=== PATIENT | female | born 1990 | race Asian ===

== ENCOUNTER → 2016-04-26 | Outpatient (REF) | payer OTHER | END | disposition home or self-care (01) | LOC: M SFHCPLAZ 15:41 | PROVIDERS: ATTEND Nurse Practitioner Family | DX: R30.0 Dysuria (principal) ==

== ENCOUNTER 2016-05-15 16:12 | Emergency (ER) | payer OTHER ==
[2016-05-15 17:53] LABS: CONTROL LINE UCG INT CTR LINE PRESENT
[2016-05-15 18:33] LABS: MEAN CORPUSCULAR HEMOGLOBIN 29.8 pg (27.0-33.0); MEAN CORPUSCULAR VOLUME 87.7 fl (80.0-96.0); RED CELL DISTRIBUTION WIDTH 12.8 % (11.5-14.5); WHITE BLOOD COUNT 7.2 K/mm3 (4.0-10.0)
[2016-05-15 19:10] LABS: ANION GAP 7 MEQ/L (8-16); BLOOD UREA NITROGEN 9 MG/DL (7-18); CALCIUM LEVEL 8.6 MG/DL (8.5-10.1); CARBON DIOXIDE LEVEL 26 MEQ/L (21-32); CHLORIDE LEVEL 107 MEQ/L (98-107); CREATININE FOR GFR 0.65 MG/DL (0.55-1.02); GLOMERULAR FILTRATION RATE > 60.0 (>60); GLUCOSE, FASTING 82 MG/DL (70-105); HCG, SERUM QUANTITATIVE 11344 MIU/ML; SODIUM LEVEL 140 MEQ/L (136-145)
--- NOTE | 2016-05-15 20:13 | EDDOCDS ---
Physician Documentation [facility] Name: Lisa Hahn Age: 25 yrs Sex: Female : 1990 Arrival Date: 05/15/2016 Time: 16:12 Bed I6 / 28 Private MD: Orquidea Fonseca M. Disposition: 05/15/16 20:00 Patient has left against medical advice. Impression: Pelvic and perineal pain, related conditions, unspecified, first trimester - twins. - Patients states they are going to Home/Self Care. - Condition is Fair. - Discharge Instructions: First Trimester of , Pelvic Pain, Female. Medication Reconciliation, Local Pharmacy Hours form. Follow up: Orquidea Fonseca; When: Call to arrange an appointment; Reason: Recheck today's complaints, Continuance of care. Follow up: Christopher Rodríguez MD; When: Call to arrange an appointment; Reason: Recheck today's complaints, Continuance of care. - Problem is new. - Symptoms are unchanged. Historical: - Allergies: SULFA (SULFONAMIDES); - Home Meds: 1. none - PMHx: Asthma; - PSHx: Adenoidectomy; - Social history: No barriers to communication noted, The patient speaks fluent Hungarian, Speaks appropriately for age, Smoking status: Patient states former smoker of tobacco. - Family history: Not pertinent. - : The pt / caregiver states he / she is not on anticoagulants. Home medication list is obtained from the patient. - Exposure Risk Screening:: None identified. 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 0 in. (182.88 cm) (R); Pain 3/10; 20:12 BP 145 / 67; Pulse 96; Resp 18; Temp 99.7(O); Pulse Ox 98% ; Pain 0/10; slm 16:13 Body Mass Index 25.09 (83.91 kg, 182.88 cm) mt4 MDM: 17:27 If pre-RCE wait time >60 minutes, inform reg. staff to do full reg ordered. kr3 17:27 If pt is female > 10 yo, order UCG ordered. kr3 17:27 Urinalysis Ordered. EDMS 17:27 Urine Test-In Lab Ordered. EDMS 17:27 Urine Culture Ordered. EDMS 18:03 Urine Test-In Lab Reviewed. mo1 18:04 Urinalysis Reviewed. mo1 18:05 Urine Test-In Lab Reviewed. mo1 18:13 Rh Only Ordered. EDMS 18:13 Complete Blood Count Ordered. EDMS 18:13 Hcg, Serum Quantitative Ordered. EDMS 18:13 BMP Ordered. EDMS 18:15 US 1st trimester Ordered. EDMS 18:21 Financial registration complete. gb 18:22 [facility] Payment Agreement was scanned into [employer] and attached to record. gb 18:48 TRANSVAGINAL US Ordered. EDMS 18:48 US 1ST TRI EA ADDITIONAL GEST Ordered. EDMS 19:04 Complete Blood Count Reviewed. mo1 19:04 Rh Only Reviewed. mo1 19:05 DUPLEX SCAN LIMITED (DOPPLER) Ordered. EDMS 19:15 BMP Reviewed. mo1 19:15 Hcg, Serum Quantitative Reviewed. mo1 Signatures: Dispatcher [employer] EDMS Yun Anaya, Reg Reg gb Destinee Molina,RN RN angelita3 Bere Sullivan,RN RN Rosalinda Mora,RN RN Rashard Mcbride, LUCA PA mo1 Valeria Gardner,NICOLLE WEATHER OBSERVER idam The chart was reviewed and I authenticate all verbal orders and agree with the evaluation and treatment provided.Attachments: 18:22 [facility] Payment Agreement gb MTDD
--- NOTE | 2016-05-15 20:13 | EDDOCDS ---
Nurse's Notes [facility] Name: Lisa Hahn Age: 25 yrs Sex: Female : 1990 Arrival Date: 05/15/2016 Time: 16:12 Bed I6 / 28 Private MD: Orquidea Fonseca M. Diagnosis: Pelvic and perineal pain; related conditions, unspecified, first trimester-twins Presentation: 05/15 16:31 Presenting complaint: Patient states: Positive test 1 week ago. having jo3 intermittent pressure feeling in supra pubic area with intermittent, bilateral cramping sensation. Risk factors: the patient reports no vaginal bleeding. Adult Sepsis Screening: The patient does not have new or worsening altered mentation. Patient's respiratory rate is less than 22. Systolic blood pressure is greater than 100. Patient has a qSOFA score of 0- Negative Sepsis Screen. Suicide/Homicide risk assessment- the patient denies having any suicidal and/or homicidal ideations and does not present with any other emotional, behavioral or mental health complaints. Status: Patient is not a district extension service agent or dependent. Transition of care: patient was not received from another setting of care. 16:31 Acuity: DAVIS Level 3 jo3 16:31 Method Of Arrival: Walkin/Carried/Asstd jo3 Triage Assessment: 16:34 General: Appears in no apparent distress, Behavior is appropriate for age, cooperative. jo3 Pain: Denies pain. HIV screening NA for this visit Offered previously. Neurological: No deficits noted. Level of Consciousness is awake, alert, Oriented to person, place, time. Respiratory: Airway is patent Respiratory effort is even, unlabored. Derm: Skin is pink, warm & dry. 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 none - PMHx: Asthma; - PSHx: Adenoidectomy; - Social history: No barriers to communication noted, The patient speaks fluent Turkish, Speaks appropriately for age, Smoking status: Patient states former smoker of tobacco. - Family history: Not pertinent. - : The pt / caregiver states he / she is not on anticoagulants. Home medication list is obtained from the patient. - Exposure Risk Screening:: None identified. Screenin:21 Screening information is obtained from the patient. Fall risk: No risks identified. pml Assistance ADL's: requires no assistance with activities of daily living. Abuse/DV Screen: The patient / caregiver reports he/she is: not in a situation that causes fear, pain or injury. Nutritional screening: No deficits noted. Advance Directives: Currently, there is no health care proxy. home support is adequate. Assessment: 18:21 General: Appears in no apparent distress, comfortable, Behavior is appropriate for age, pml cooperative. Pain: Location: suprapubic area. Neurological: Level of Consciousness is awake, alert, Oriented to person, place, time. Cardiovascular: Capillary refill < 3 seconds. Respiratory: Airway is patent Respiratory effort is even, unlabored. GI: Abdomen is non- distended Bowel sounds present X 4 quads. Abd is soft X 4 quads. Derm: Skin is pink, warm & dry. Social Work Consult: 20:09 LWBS/AMA AMA: Patient is refusing further stabilizing treatment at [facility], although jl offered treatment regardless of method of payment or ability to pay. Patient is aware that this action is being undertaken against the advice of the medical staff at [facility]. Pt. has capacity to understand the potential consequences of this choice. pt did notify ED staff. Patient / guardian did sign Refusal of Services form. Pt left before being seen by PSA. Vital Signs: 16:13 BP 121 / 59 LA Sitting (auto/reg); Pulse 87 LA; Resp 18 S; Temp 97.7(O); Pulse Ox 100% mt4 on R/A; Weight 83.91 kg (R); Height 6 ft. 0 in. (182.88 cm) (R); Pain 3/10; 20:12 BP 145 / 67; Pulse 96; Resp 18; Temp 99.7(O); Pulse Ox 98% ; Pain 0/10; slm 16:13 Body Mass Index 25.09 (83.91 kg, 182.88 cm) mt4 Vitals: 16:13 Log In Time: May 15, 2016 at 16:12. mt4 ED Course: 16:12 Patient visited by Negrita Santamaria. mt4 16:12 Patient moved to Waiting mt4 16:13 Orquidea Fonseca is Private Physician. mt4 16:15 Patient moved to Pre RCE mt4 16:34 Triage Initiated jo3 16:35 Patient visited by Bere Sullivan RN. jo3 17:33 Urinalysis Sent. kr3 17:33 Urine Test-In Lab Sent. kr3 17:33 Urine Culture Sent. kr3 18:01 Rashard Hart PA is PHCP. mo1 18:01 Sal Zamudio MD is Attending Physician. mo1 18:01 Patient moved to Triage 1 pml 18:12 Patient visited by Rashard Hart PA. mo1 18:18 Patient moved to TR1 kr3 18:21 The patient / caregiver is instructed regarding the plan of care and ED course. Patient pml has correct armband on for positive identification. Bed in low position. Call light in reach. 18:21 No IV's were initiated during this patient's visit. No procedures done that require pml assistance. Labs drawn. (by ED staff). Sent per order to lab. Urine collected. Clean catch specimen. 18:22 Patient visited by Rosalinda Martines RN. pml 18:22 [facility] Payment Agreement was scanned into [employer] and attached to record. gb 18:40 Patient moved to Ultrasound sm5 19:04 Patient moved to TR1 sm5 19:52 Patient moved to I6 / 28 jo3 19:59 Orquidea Fonseca is Referral Physician. mo1 20:00 Orquidea Fonseca is Referral Physician. mo1 20:00 Christopher Rodríguez MD is Referral Physician. mo1 Order Results: Lab Order: Urinalysis; SPEC'M 05/15/16 17:31 Test: APPEARANCE, URINE; Value: CLOUDY; Range: CLEAR; Abnormal: Above high normal; Status: F Test: COLOR, URINE; Value: YELLOW; Range: YELLOW; Status: F Test: PH,URINE; Value: 6.0; Range: 5.0-9.0; Units: UNITS; Status: F Test: SPECIFIC GRAVITY URINE AUTO; Value: 1.023; Range: 1.002-1.035; Status: F Test: PROTEIN, URINE AUTO; Value: NEGATIVE; Range: NEGATIVE; Units: mg/dL; Status: F Test: GLUCOSE, URINE (UA) AUTO; Value: NEGATIVE; Range: NEGATIVE; Units: mg/dL; Status: F Test: KETONE, URINE AUTO; Value: NEGATIVE; Range: NEGATIVE; Units: mg/dL; Status: F Test: UROBILINOGEN, URINE AUTO; Value: 0.2; Range: 0.0-2.0; Units: mg/dL; Status: F Test: BILIRUBIN, URINE AUTO; Value: NEGATIVE; Range: NEGATIVE; Status: F Test: NITRITE, URINE AUTO; Value: NEGATIVE; Range: NEGATIVE; Status: F Test: LEUKOCYTE ESTERASE, URINE AUTO; Value: 3+; Range: NEGATIVE; Abnormal: Above high normal; Status: F Test: BLOOD, URINE BLOOD; Value: 1+; Range: NEGATIVE; Abnormal: Above high normal; Status: F Test: SPERM, URINE AUTO; Range: NONE; Status: I Test: WBC, URINE AUTO; Value: 1; Range: 0-3; Units: /HPF; Status: F Test: RBC, URINE AUTO; Value: 3; Range: 0-3; Units: /HPF; Status: F Test: BACTERIA, URINE AUTO; Value: 1+; Range: NEGATIVE; Abnormal: Above high normal; Status: F Test: SQUAMOUS EPITHELIAL CELL UR AU; Value: 11; Range: 0-6; Units: /HPF; Status: F Test: MUCUS, URINE; Value: SMALL; Range: NEGATIVE; Status: F Test: HYALINE CAST, URINE AUTO; Value: 0; Range: 0-1; Units: /LPF; Status: F Lab Order: Urine Test-In Lab; SPEC'M 05/15/16 17:31 Test: URINE PREG TEST; Value: POSITIVE; Range: NEGATIVE; Abnormal: Abnormal; Status: F Lab Order: Complete Blood Count; SPEC'M 05/15/16 18:17 Test: WHITE BLOOD COUNT; Value: 7.2; Range: 4.0-10.0; Units: K/mm3; Status: F Test: RED BLOOD COUNT; Value: 4.38; Range: 4.00-5.40; Units: M/mm3; Status: F Test: HEMOGLOBIN; Value: 13.1; Range: 12.0-16.0; Units: g/dl; Status: F Test: HEMATOCRIT; Value: 38.5; Range: 36.0-47.0; Units: %; Status: F Test: MEAN CORPUSCULAR VOLUME; Value: 87.7; Range: 80.0-96.0; Units: fl; Status: F Test: MEAN CORPUSCULAR HEMOGLOBIN; Value: 29.8; Range: 27.0-33.0; Units: pg; Status: F Test: MEAN CORPUSCULAR HGB CONC; Value: 34.0; Range: 32.0-36.5; Units: g/dl; Status: F Test: RED CELL DISTRIBUTION WIDTH; Value: 12.8; Range: 11.5-14.5; Units: %; Status: F Test: PLATELET COUNT, AUTOMATED; Value: 150; Range: 150-450; Units: k/mm3; Status: F Lab Order: Hcg, Serum Quantitative; 05/15/16 18:17 Test: HCG, SERUM QUANTITATIVE; Value: 80819; Units: MIU/ML; Status: F Test Note: ; GESTATIONAL AGE APPROXIMATE HCG RANGE (MIU/ML) 0.2-1 WEEK 5-50 1-2 WEEKS 50-500 2-3 WEEKS 100-5,000 3-4 WEEKS 500-10,000 4-5 WEEKS 1,000-50,000 5-6 WEEKS 10,000-100,000 6-8 WEEKS 15,000-200,000 2-3 MONTHS 10,000-100,000 NON FEMALES LESS THAN 3.0 Patient samples may contain human heterophilic antibodies that could react with immunoassays to give falsely elevated or depressed results. This assay has been designed to minimize interference from heterophilic antibodies. Elevated hCG levels have also been associated with trophoblastic disease and nontrophoblastic neoplasms. The possibility of having these diseases should be considered before a diagnosis of is made. This test is not intended for use as a surrogate marker for aiding in the diagnosis or monitoring the treatment of cancer patients. Siemens SigmaQuest methodology. Lab Order: Rh Only; 05/15/16 18:17 Test: RH; Value: POSITIVE; Status: F Lab Order: BMP; 05/15/16 18: Test: GLUCOSE, FASTING; Value: 82; Range: 70-105; Units: MG/DL; Status: F Test: BLOOD UREA NITROGEN; Value: 9; Range: 7-18; Units: MG/DL; Status: F Test: CREATININE FOR GFR; Value: 0.65; Range: 0.55-1.02; Units: MG/DL; Status: F Test: GLOMERULAR FILTRATION RATE; Value: > 60.0; Range: >60; Status: F Test: SODIUM LEVEL; Value: 140; Range: 136-145; Units: MEQ/L; Status: F Test: POTASSIUM SERUM; Value: 4.0; Range: 3.5-5.1; Units: MEQ/L; Status: F Test: CHLORIDE LEVEL; Value: 107; Range: 98-107; Units: MEQ/L; Status: F Test: CARBON DIOXIDE LEVEL; Value: 26; Range: 21-32; Units: MEQ/L; Status: F Test: ANION GAP; Value: 7; Range: 8-16; Abnormal: Below low normal; Units: MEQ/L; Status: F Test: CALCIUM LEVEL; Value: 8.6; Range: 8.5-10.1; Units: MG/DL; Status: F Test Note: ; Units are mL/min/1.73 m2 Chronic Kidney Disease Staging per NKF: Stage I & II GFR >=60 Normal to Mildly Decreased Stage III GFR 30-59 Moderately Decreased Stage IV GFR 15-29 Severely Decreased Stage V GFR <15 Very Little GFR Left ESRD GFR <15 on LAW TUTOR Outcome: 19:59 Discharge ordered by Provider. mo1 20:00 Patient left against medical advice. mo1 20:11 Discharge Assessment: Patient awake, alert and oriented x 3. No cognitive and/or slm functional deficits noted. Patient verbalized understanding of disposition instructions. Discharge Assessment: patient administered narcotics - no. The following High Risk Discharge criteria are identified: Yes, AMA. The patient is leaving AMA: AMA form signed, Notification of AMA status is made to the charge nurse, the family welfare social work professor, the ED attending physician. Condition: stable. Ultrasound Study completed. Property :Personal belongings accompany Pt. 20:13 Patient left the ED. slm Signatures: Abimael Mckeon, SHER PSA Yun Morel, Naman Reg Melanie Miller sm5 Destinee MolinaRN RN angelita3 Bere Sullivan RN RN [id number] Negrita Santamaria mt4 Rosalinda MartinesRN Rashard Izquierdo PA PA mo1 Gardner,Valeria,CONTACT CENTER ASSOCIATE CONTACT CENTER ASSOCIATE slm MTDD
--- NOTE | 2016-05-15 20:20 | REPUSA ---
CLINICAL HISTORY: 6 weeks , pelvic pain and pelvic pressure. TECHNIQUE: Realtime sonographic images were obtained in multiple projections. COMMENTS: LMP 04/07/16, GA BY LMP - 5 weeks 3 days, G -2; P - 1. Uterine size 10.2 x 5.4 x 16.5 cm. There is a large cystic area superior uterus, midline 4.1 x 2.5 x 4.6 cm, may represent a degenerating fibroid. Gestational sac size (A) measures 10.0 x 6.0 x 14.9 cm, mean size 10.3 mm corresponds to gestational age 5 weeks 3 days. Gestational sac size (B) measures 12.1 x 11.4 x 5.8 cm, mean size 9.8 mm corresponds to gestational a ge 5 weeks 5 days. The right ovary measures 3.4 x 1.2 x 2.6, cm within normal limits. The left ovary measures 4.2 x 2.2 x 3.2, has involuting cyst (2.1 x 1.4 x 1.8 cm). IMPRESSION: Two gestational sacs seen di/di both have yolk sac no pole. This is most compatible with a ear ly IUP versus missed AB, correlate clinically. Followup as needed. Thank you for your kind referral of this patient. We appreciate the opportunity to participate in th is patient's care.
--- NOTE | 2016-05-17 20:20 | EDDOCDS ---
Physician Documentation [facility] Name: Lisa Hahn Age: 25 yrs Sex: Female : 1990 Arrival Date: 05/15/2016 Time: 16:12 Bed I6 / 28 Private MD: Miladis Fonseca M. Disposition: 05/15/16 20:00 Patient has left against medical advice. Impression: Pelvic and perineal pain, related conditions, unspecified, first trimester - twins. - Patients states they are going to Home/Self Care. - Condition is Fair. - Discharge Instructions: First Trimester of , Pelvic Pain, Female. Medication Reconciliation, Local Pharmacy Hours form. Follow up: Miladis Fonseca; When: Call to arrange an appointment; Reason: Recheck today's complaints, Continuance of care. Follow up: Christopher Gan MD; When: Call to arrange an appointment; Reason: Recheck today's complaints, Continuance of care. - Problem is new. - Symptoms are unchanged. Historical: - Allergies: SULFA (SULFONAMIDES); - Home Meds: 1. none - PMHx: Asthma; - PSHx: Adenoidectomy; - Social history: No barriers to communication noted, The patient speaks fluent Indonesian, Speaks appropriately for age, Smoking status: Patient states former smoker of tobacco. - Family history: Not pertinent. - : The pt / caregiver states he / she is not on anticoagulants. Home medication list is obtained from the patient. - Exposure Risk Screening:: None identified. 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 0 in. (182.88 cm) (R); Pain 3/10; 20:12 BP 145 / 67; Pulse 96; Resp 18; Temp 99.7(O); Pulse Ox 98% ; Pain 0/10; slm 16:13 Body Mass Index 25.09 (83.91 kg, 182.88 cm) mt4 MDM: 17:27 If pre-RCE wait time >60 minutes, inform reg. staff to do full reg ordered. kr3 17:27 If pt is female > 10 yo, order UCG ordered. kr3 17:27 Urinalysis Ordered. EDMS 17:27 Urine Test-In Lab Ordered. EDMS 17:27 Urine Culture Ordered. EDMS 18:03 Urine Test-In Lab Reviewed. mo1 18:04 Urinalysis Reviewed. mo1 18:05 Urine Test-In Lab Reviewed. mo1 18:13 Rh Only Ordered. EDMS 18:13 Complete Blood Count Ordered. EDMS 18:13 Hcg, Serum Quantitative Ordered. EDMS 18:13 BMP Ordered. EDMS 18:15 US 1st trimester Ordered. EDMS 18:21 Financial registration complete. gb 18:22 [facility] Payment Agreement was scanned into [employer] and attached to record. gb 18:48 TRANSVAGINAL US Ordered. EDMS 18:48 US 1ST TRI EA ADDITIONAL GEST Ordered. EDMS 19:04 Complete Blood Count Reviewed. mo1 19:04 Rh Only Reviewed. mo1 19:05 DUPLEX SCAN LIMITED (DOPPLER) Ordered. EDMS 19:15 BMP Reviewed. mo1 19:15 Hcg, Serum Quantitative Reviewed. mo1 21:57 T-Sheet-- Draft Copy was scanned into [employer] and attached to record. klr 05/16 10:20 Refusal of Services was scanned into [employer] and attached to record. gb Addendum: 05/17/2016 20:18 Radiology Callback: Radiology results faxed to primary care physician/provider. dr noemi gan and miladis fonseca faxed formal report of 1st trimester us for fu mlg. Signatures: Dispatcher [employer] [facility] Feliciano Hoover MD MD ml Barnhardt, Gloria, Reg Reg gb Destinee MolinaRN RN Bere SamRN RN Rosalinda MoraRN RN Rashard Mcbride PA PA mo1 Valeria Gardner LPN LPN slm Redder, Kathie klr The chart was reviewed and I authenticate all verbal orders and agree with the evaluation and treatment provided.Attachments: 05/15 18:22 [facility] Payment Agreement gb 21:57 T-Sheet-- Draft Copy klr MTDD
--- NOTE | 2016-05-17 20:20 | EDDOCDS ---
Physician Documentation [facility] Name: Lisa Hahn Age: 25 yrs Sex: Female : 1990 Arrival Date: 05/15/2016 Time: 16:12 Bed I6 / 28 Private MD: Miladis Fonseca M. Disposition: 05/15/16 20:00 Patient has left against medical advice. Impression: Pelvic and perineal pain, related conditions, unspecified, first trimester - twins. - Patients states they are going to Home/Self Care. - Condition is Fair. - Discharge Instructions: First Trimester of , Pelvic Pain, Female. Medication Reconciliation, Local Pharmacy Hours form. Follow up: Miladis Fonseca; When: Call to arrange an appointment; Reason: Recheck today's complaints, Continuance of care. Follow up: Christopher Gan MD; When: Call to arrange an appointment; Reason: Recheck today's complaints, Continuance of care. - Problem is new. - Symptoms are unchanged. Historical: - Allergies: SULFA (SULFONAMIDES); - Home Meds: 1. none - PMHx: Asthma; - PSHx: Adenoidectomy; - Social history: No barriers to communication noted, The patient speaks fluent Ugandan, Speaks appropriately for age, Smoking status: Patient states former smoker of tobacco. - Family history: Not pertinent. - : The pt / caregiver states he / she is not on anticoagulants. Home medication list is obtained from the patient. - Exposure Risk Screening:: None identified. 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 0 in. (182.88 cm) (R); Pain 3/10; 20:12 BP 145 / 67; Pulse 96; Resp 18; Temp 99.7(O); Pulse Ox 98% ; Pain 0/10; slm 16:13 Body Mass Index 25.09 (83.91 kg, 182.88 cm) mt4 MDM: 17:27 If pre-RCE wait time >60 minutes, inform reg. staff to do full reg ordered. kr3 17:27 If pt is female > 10 yo, order UCG ordered. kr3 17:27 Urinalysis Ordered. EDMS 17:27 Urine Test-In Lab Ordered. EDMS 17:27 Urine Culture Ordered. EDMS 18:03 Urine Test-In Lab Reviewed. mo1 18:04 Urinalysis Reviewed. mo1 18:05 Urine Test-In Lab Reviewed. mo1 18:13 Rh Only Ordered. EDMS 18:13 Complete Blood Count Ordered. EDMS 18:13 Hcg, Serum Quantitative Ordered. EDMS 18:13 BMP Ordered. EDMS 18:15 US 1st trimester Ordered. EDMS 18:21 Financial registration complete. gb 18:22 [facility] [place] Agreement was scanned into [employer] and attached to record. gb 18:48 TRANSVAGINAL US Ordered. EDMS 18:48 US 1ST TRI EA ADDITIONAL GEST Ordered. EDMS 19:04 Complete Blood Count Reviewed. mo1 19:04 Rh Only Reviewed. mo1 19:05 DUPLEX SCAN LIMITED (DOPPLER) Ordered. EDMS 19:15 BMP Reviewed. mo1 19:15 Hcg, Serum Quantitative Reviewed. mo1 21:57 T-Sheet-- Draft Copy was scanned into [employer] and attached to record. klr 05/16 10:20 Refusal of Services was scanned into [employer] and attached to record. gb Addendum: 05/17/2016 20:18 Radiology Callback: Radiology results faxed to primary care physician/provider. dr noemi gan and miladis fonseca faxed formal report of 1st trimester us for fu mlg. Signatures: Dispatcher [employer] [facility] Feliciano Hoover MD MD ml Barnhardt, Gloria, Reg Reg gb Destinee MolinaRN RN Bere SamRN RN Rosalinda MoraRN RN Rashard Mcbride PA PA mo1 Valeria Gardner LPN LPN slm Redder, Kathie klr The chart was reviewed and I authenticate all verbal orders and agree with the evaluation and treatment provided.Attachments: 05/15 18:22 [facility] [place] Agreement gb 21:57 T-Sheet-- Draft Copy klr MTDD
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
--- NOTE | 2016-05-17 21:14 | EDDOCDS ---
Physician Documentation [facility] Name: Lisa Hahn Age: 25 yrs Sex: Female : 1990 Arrival Date: 05/15/2016 Time: 16:12 Bed I6 / 28 Private MD: Miladis Fonseca M. Disposition: 05/15/16 20:00 Patient has left against medical advice. Impression: Pelvic and perineal pain, related conditions, unspecified, first trimester - twins. - Patients states they are going to Home/Self Care. - Condition is Fair. - Discharge Instructions: First Trimester of , Pelvic Pain, Female. Medication Reconciliation, Local Pharmacy Hours form. Follow up: Miladis Fonseca; When: Call to arrange an appointment; Reason: Recheck today's complaints, Continuance of care. Follow up: Christopher Gan MD; When: Call to arrange an appointment; Reason: Recheck today's complaints, Continuance of care. - Problem is new. - Symptoms are unchanged. Historical: - Allergies: SULFA (SULFONAMIDES); - Home Meds: 1. none - PMHx: Asthma; - PSHx: Adenoidectomy; - Social history: No barriers to communication noted, The patient speaks fluent [place], Speaks appropriately for age, Smoking status: Patient states former smoker of tobacco. - Family history: Not pertinent. - : The pt / caregiver states he / she is not on anticoagulants. Home medication list is obtained from the patient. - Exposure Risk Screening:: None identified. 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 0 in. (182.88 cm) (R); Pain 3/10; 20:12 BP 145 / 67; Pulse 96; Resp 18; Temp 99.7(O); Pulse Ox 98% ; Pain 0/10; slm 16:13 Body Mass Index 25.09 (83.91 kg, 182.88 cm) mt4 MDM: 17:27 If pre-RCE wait time >60 minutes, inform reg. staff to do full reg ordered. kr3 17:27 If pt is female > 10 yo, order UCG ordered. kr3 17:27 Urinalysis Ordered. EDMS 17:27 Urine Test-In Lab Ordered. EDMS 17:27 Urine Culture Ordered. EDMS 18:03 Urine Test-In Lab Reviewed. mo1 18:04 Urinalysis Reviewed. mo1 18:05 Urine Test-In Lab Reviewed. mo1 18:13 Rh Only Ordered. EDMS 18:13 Complete Blood Count Ordered. EDMS 18:13 Hcg, Serum Quantitative Ordered. EDMS 18:13 BMP Ordered. EDMS 18:15 US 1st trimester Ordered. EDMS 18:21 Financial registration complete. gb 18:22 [facility] Payment Agreement was scanned into [employer] and attached to record. gb 18:48 TRANSVAGINAL US Ordered. EDMS 18:48 US 1ST TRI EA ADDITIONAL GEST Ordered. EDMS 19:04 Complete Blood Count Reviewed. mo1 19:04 Rh Only Reviewed. mo1 19:05 DUPLEX SCAN LIMITED (DOPPLER) Ordered. EDMS 19:15 BMP Reviewed. mo1 19:15 Hcg, Serum Quantitative Reviewed. mo1 21:57 T-Sheet-- Draft Copy was scanned into [employer] and attached to record. klr 05/16 10:20 Refusal of Services was scanned into [employer] and attached to record. gb Addendum: 05/17/2016 20:18 Radiology Callback: Radiology results faxed to primary care physician/provider. dr noemi gan and miladis fonseca faxed formal report of 1st trimester us for fu mlg. Signatures: Dispatcher [employer] [facility] Feliciano Hoover MD MD ml Barnhardt, Gloria, Reg Reg gb Destinee MolinaRN RN Bere SamRN RN Rosalinda MoraRN RN Rashard Mcbride PA PA mo1 Valeria Gardner LPN LPN slm Redder, Kathie klr The chart was reviewed and I authenticate all verbal orders and agree with the evaluation and treatment provided.Attachments: 05/15 18:22 [facility] Payment Agreement gb 21:57 T-Sheet-- Draft Copy klr Chart Complete MTDD
--- NOTE | 2016-05-17 21:14 | EDDOCDS ---
Nurse's Notes [facility] Name: Lisa Hahn Age: 25 yrs Sex: Female : 1990 Arrival Date: 05/15/2016 Time: 16:12 Bed I6 / 28 Private MD: Orquidea Fonseca M. Diagnosis: Pelvic and perineal pain; related conditions, unspecified, first trimester-twins Presentation: 05/15 16:31 Presenting complaint: Patient states: Positive test 1 week ago. having jo3 intermittent pressure feeling in supra pubic area with intermittent, bilateral cramping sensation. Risk factors: the patient reports no vaginal bleeding. Adult Sepsis Screening: The patient does not have new or worsening altered mentation. Patient's respiratory rate is less than 22. Systolic blood pressure is greater than 100. Patient has a qSOFA score of 0- Negative Sepsis Screen. Suicide/Homicide risk assessment- the patient denies having any suicidal and/or homicidal ideations and does not present with any other emotional, behavioral or mental health complaints. Status: Patient is not a field services director or dependent. Transition of care: patient was not received from another setting of care. 16:31 Acuity: DAVIS Level 3 jo3 16:31 Method Of Arrival: Walkin/Carried/Asstd jo3 Triage Assessment: 16:34 General: Appears in no apparent distress, Behavior is appropriate for age, cooperative. jo3 Pain: Denies pain. HIV screening NA for this visit Offered previously. Neurological: No deficits noted. Level of Consciousness is awake, alert, Oriented to person, place, time. Respiratory: Airway is patent Respiratory effort is even, unlabored. Derm: Skin is pink, warm & dry. 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 none - PMHx: Asthma; - PSHx: Adenoidectomy; - Social history: No barriers to communication noted, The patient speaks fluent Turkish, Speaks appropriately for age, Smoking status: Patient states former smoker of tobacco. - Family history: Not pertinent. - : The pt / caregiver states he / she is not on anticoagulants. Home medication list is obtained from the patient. - Exposure Risk Screening:: None identified. Screenin:21 Screening information is obtained from the patient. Fall risk: No risks identified. pml Assistance ADL's: requires no assistance with activities of daily living. Abuse/DV Screen: The patient / caregiver reports he/she is: not in a situation that causes fear, pain or injury. Nutritional screening: No deficits noted. Advance Directives: Currently, there is no health care proxy. home support is adequate. Assessment: 18:21 General: Appears in no apparent distress, comfortable, Behavior is appropriate for age, pml cooperative. Pain: Location: suprapubic area. Neurological: Level of Consciousness is awake, alert, Oriented to person, place, time. Cardiovascular: Capillary refill < 3 seconds. Respiratory: Airway is patent Respiratory effort is even, unlabored. GI: Abdomen is non- distended Bowel sounds present X 4 quads. Abd is soft X 4 quads. Derm: Skin is pink, warm & dry. Social Work Consult: 20:09 LWBS/AMA AMA: Patient is refusing further stabilizing treatment at [facility], although jl offered treatment regardless of method of payment or ability to pay. Patient is aware that this action is being undertaken against the advice of the medical staff at [facility]. Pt. has capacity to understand the potential consequences of this choice. pt did notify ED staff. Patient / guardian did sign Refusal of Services form. Pt left before being seen by PSA. Vital Signs: 16:13 BP 121 / 59 LA Sitting (auto/reg); Pulse 87 LA; Resp 18 S; Temp 97.7(O); Pulse Ox 100% mt4 on R/A; Weight 83.91 kg (R); Height 6 ft. 0 in. (182.88 cm) (R); Pain 3/10; 20:12 BP 145 / 67; Pulse 96; Resp 18; Temp 99.7(O); Pulse Ox 98% ; Pain 0/10; slm 16:13 Body Mass Index 25.09 (83.91 kg, 182.88 cm) mt4 Vitals: 16:13 Log In Time: May 15, 2016 at 16:12. mt4 ED Course: 16:12 Patient visited by Negrita Santamaria. mt4 16:12 Patient moved to Waiting mt4 16:13 Orquidea Fonseca is Private Physician. mt4 16:15 Patient moved to Pre RCE mt4 16:34 Triage Initiated jo3 16:35 Patient visited by Bere Sullivan RN. jo3 17:33 Urinalysis Sent. kr3 17:33 Urine Test-In Lab Sent. kr3 17:33 Urine Culture Sent. kr3 18:01 Rashard Hart PA is PHCP. mo1 18:01 Sal Zamudio MD is Attending Physician. mo1 18:01 Patient moved to Triage 1 pml 18:12 Patient visited by Rashard Hart PA. mo1 18:18 Patient moved to TR1 kr3 18:21 The patient / caregiver is instructed regarding the plan of care and ED course. Patient pml has correct armband on for positive identification. Bed in low position. Call light in reach. 18:21 No IV's were initiated during this patient's visit. No procedures done that require pml assistance. Labs drawn. (by ED staff). Sent per order to lab. Urine collected. Clean catch specimen. 18:22 Patient visited by Rosalinda Martines RN. pml 18:22 [facility] Payment Agreement was scanned into [employer] and attached to record. gb 18:40 Patient moved to Ultrasound sm5 19:04 Patient moved to TR1 sm5 19:52 Patient moved to I6 / 28 jo3 19:59 Orquidea Fonseca is Referral Physician. mo1 20:00 Orquidea Fonseca is Referral Physician. mo1 20:00 Christopher Rodríguez MD is Referral Physician. mo1 20:57 US 1st trimester Returned. EDMS 21:57 T-Sheet-- Draft Copy was scanned into [employer] and attached to record. klr 05/16 10:20 Refusal of Services was scanned into [employer] and attached to record. gb Attachments: 05/16 10:20 Refusal of Services gb Order Results: Lab Order: Urinalysis; SPEC'M 05/15/16 17:31 Test: APPEARANCE, URINE; Value: CLOUDY; Range: CLEAR; Abnormal: Above high normal; Status: F Test: COLOR, URINE; Value: YELLOW; Range: YELLOW; Status: F Test: PH,URINE; Value: 6.0; Range: 5.0-9.0; Units: UNITS; Status: F Test: SPECIFIC GRAVITY URINE AUTO; Value: 1.023; Range: 1.002-1.035; Status: F Test: PROTEIN, URINE AUTO; Value: NEGATIVE; Range: NEGATIVE; Units: mg/dL; Status: F Test: GLUCOSE, URINE (UA) AUTO; Value: NEGATIVE; Range: NEGATIVE; Units: mg/dL; Status: F Test: KETONE, URINE AUTO; Value: NEGATIVE; Range: NEGATIVE; Units: mg/dL; Status: F Test: UROBILINOGEN, URINE AUTO; Value: 0.2; Range: 0.0-2.0; Units: mg/dL; Status: F Test: BILIRUBIN, URINE AUTO; Value: NEGATIVE; Range: NEGATIVE; Status: F Test: NITRITE, URINE AUTO; Value: NEGATIVE; Range: NEGATIVE; Status: F Test: LEUKOCYTE ESTERASE, URINE AUTO; Value: 3+; Range: NEGATIVE; Abnormal: Above high normal; Status: F Test: BLOOD, URINE BLOOD; Value: 1+; Range: NEGATIVE; Abnormal: Above high normal; Status: F Test: SPERM, URINE AUTO; Range: NONE; Status: I Test: WBC, URINE AUTO; Value: 1; Range: 0-3; Units: /HPF; Status: F Test: RBC, URINE AUTO; Value: 3; Range: 0-3; Units: /HPF; Status: F Test: BACTERIA, URINE AUTO; Value: 1+; Range: NEGATIVE; Abnormal: Above high normal; Status: F Test: SQUAMOUS EPITHELIAL CELL UR AU; Value: 11; Range: 0-6; Units: /HPF; Status: F Test: MUCUS, URINE; Value: SMALL; Range: NEGATIVE; Status: F Test: HYALINE CAST, URINE AUTO; Value: 0; Range: 0-1; Units: /LPF; Status: F Lab Order: Urine Test-In Lab; SPEC'M 05/15/16 17:31 Test: URINE PREG TEST; Value: POSITIVE; Range: NEGATIVE; Abnormal: Abnormal; Status: F Lab Order: Urine Culture; SPEC'M 05/15/16 17:31 Test: URINE CULTURE; Value: URINE CULTURE RESULT; Status: F Test: URINE CULTURE; Value: NO GROWTH CLINICAL SIGNIFICANCE 2 OR MORE ORGANISMS; Status: F Lab Order: Complete Blood Count; SPEC'M 05/15/16 18:17 Test: WHITE BLOOD COUNT; Value: 7.2; Range: 4.0-10.0; Units: K/mm3; Status: F Test: RED BLOOD COUNT; Value: 4.38; Range: 4.00-5.40; Units: M/mm3; Status: F Test: HEMOGLOBIN; Value: 13.1; Range: 12.0-16.0; Units: g/dl; Status: F Test: HEMATOCRIT; Value: 38.5; Range: 36.0-47.0; Units: %; Status: F Test: MEAN CORPUSCULAR VOLUME; Value: 87.7; Range: 80.0-96.0; Units: fl; Status: F Test: MEAN CORPUSCULAR HEMOGLOBIN; Value: 29.8; Range: 27.0-33.0; Units: pg; Status: F Test: MEAN CORPUSCULAR HGB CONC; Value: 34.0; Range: 32.0-36.5; Units: g/dl; Status: F Test: RED CELL DISTRIBUTION WIDTH; Value: 12.8; Range: 11.5-14.5; Units: %; Status: F Test: PLATELET COUNT, AUTOMATED; Value: 150; Range: 150-450; Units: k/mm3; Status: F Lab Order: Hcg, Serum Quantitative; SPEC'M 05/15/16 18:17 Test: HCG, SERUM QUANTITATIVE; Value: 10480; Units: MIU/ML; Status: F Test Note: ; GESTATIONAL AGE APPROXIMATE HCG RANGE (MIU/ML) 0.2-1 WEEK 5-50 1-2 WEEKS 50-500 2-3 WEEKS 100-5,000 3-4 WEEKS 500-10,000 4-5 WEEKS 1,000-50,000 5-6 WEEKS 10,000-100,000 6-8 WEEKS 15,000-200,000 2-3 MONTHS 10,000-100,000 NON FEMALES LESS THAN 3.0 Patient samples may contain human heterophilic antibodies that could react with immunoassays to give falsely elevated or depressed results. This assay has been designed to minimize interference from heterophilic antibodies. Elevated hCG levels have also been associated with trophoblastic disease and nontrophoblastic neoplasms. The possibility of having these diseases should be considered before a diagnosis of is made. This test is not intended for use as a surrogate marker for aiding in the diagnosis or monitoring the treatment of cancer patients. [employer] methodology. Lab Order: Rh Only; SPEC'M 05/15/16 18:17 Test: RH; Value: POSITIVE; Status: F Lab Order: BMP; SPEC'M 05/15/16 18:17 Test: GLUCOSE, FASTING; Value: 82; Range: 70-105; Units: MG/DL; Status: F Test: BLOOD UREA NITROGEN; Value: 9; Range: 7-18; Units: MG/DL; Status: F Test: CREATININE FOR GFR; Value: 0.65; Range: 0.55-1.02; Units: MG/DL; Status: F Test: GLOMERULAR FILTRATION RATE; Value: > 60.0; Range: >60; Status: F Test: SODIUM LEVEL; Value: 140; Range: 136-145; Units: MEQ/L; Status: F Test: POTASSIUM SERUM; Value: 4.0; Range: 3.5-5.1; Units: MEQ/L; Status: F Test: CHLORIDE LEVEL; Value: 107; Range: 98-107; Units: MEQ/L; Status: F Test: CARBON DIOXIDE LEVEL; Value: 26; Range: 21-32; Units: MEQ/L; Status: F Test: ANION GAP; Value: 7; Range: 8-16; Abnormal: Below low normal; Units: MEQ/L; Status: F Test: CALCIUM LEVEL; Value: 8.6; Range: 8.5-10.1; Units: MG/DL; Status: F Test Note: ; Units are mL/min/1.73 m2 Chronic Kidney Disease Staging per NKF: Stage I & II GFR >=60 Normal to Mildly Decreased Stage III GFR 30-59 Moderately Decreased Stage IV GFR 15-29 Severely Decreased Stage V GFR <15 Very Little GFR Left ESRD GFR <15 on BLOCK TRIMMER Radiology Order: US 1st trimester Test: US 1st trimester REASON FOR EXAMINATION: 6wks preg, pelvic pain; ; CLINICAL HISTORY: 6 weeks , pelvic pain and pelvic pressure.; ; TECHNIQUE: Realtime sonographic images were obtained in multiple projections.; ; COMMENTS:; LMP 04/07/, [place] BY LMP - 5 weeks 3 days, G -2; P - 1.; ; Uterine size 10.2 x 5.4 x 16.5 cm. There is a large cystic area superior uterus, midline 4.1 x 2.5 x; 4.6 cm, may represent a degenerating fibroid.; Gestational sac size (A) measures 10.0 x 6.0 x 14.9 cm, mean size 10.3 mm corresponds to gestational; age 5 weeks 3 days.; ; Gestational sac size (B) measures 12.1 x 11.4 x 5.8 cm, mean size 9.8 mm corresponds to gestational a; ge 5 weeks 5 days.; ; The right ovary measures 3.4 x 1.2 x 2.6, cm within normal limits. The left ovary measures 4.2 x 2.2; x 3.2, has involuting cyst (2.1 x 1.4 x 1.8 cm).; ; IMPRESSION:; Two gestational sacs seen di/di both have yolk sac no pole. This is most compatible with a ear; ly IUP versus missed AB, correlate clinically. Followup as needed.; ; ; Thank you for your kind referral of this patient. We appreciate the opportunity to participate in th; is patient's care.; ; Outcome: 05/15 19:59 Discharge ordered by Provider. mo1 20:00 Patient left against medical advice. mo1 20:11 Discharge Assessment: Patient awake, alert and oriented x 3. No cognitive and/or slm functional deficits noted. Patient verbalized understanding of disposition instructions. Discharge Assessment: patient administered narcotics - no. The following High Risk Discharge criteria are identified: Yes, AMA. The patient is leaving AMA: AMA form signed, Notification of AMA status is made to the charge nurse, the manager social media, the ED attending physician. Condition: stable. Ultrasound Study completed. Property :Personal belongings accompany Pt. 20:13 Patient left the ED. slm Signatures: Dispatcher [employer] EDMS Abimael Mckeon, PSA PSA Yun Morel, Naman Reg Melanie Miller 5 Destinee Molina RN RN [email or web address] Bere Sullivan RN RN [id number] Negrita Santamaria mt4 Rosalinda Martines RN RN pml O'Hagan, Michael, PA PA mo1 Valeria Gardner LPN GLUING MACHINE OPERATOR ELECTRONIC slJulia Martin Chart Complete MTDD
--- NOTE | 2016-05-17 21:14 | EDDOCDS ---
Physician Documentation [facility] Name: Lisa Hahn Age: 25 yrs Sex: Female : 1990 Arrival Date: 05/15/2016 Time: 16:12 Bed I6 / 28 Private MD: Miladis Fonseca M. Disposition: 05/15/16 20:00 Patient has left against medical advice. Impression: Pelvic and perineal pain, related conditions, unspecified, first trimester - twins. - Patients states they are going to Home/Self Care. - Condition is Fair. - Discharge Instructions: First Trimester of , Pelvic Pain, Female. Medication Reconciliation, Local Pharmacy Hours form. Follow up: Miladis Fonseca; When: Call to arrange an appointment; Reason: Recheck today's complaints, Continuance of care. Follow up: Christopher Gan MD; When: Call to arrange an appointment; Reason: Recheck today's complaints, Continuance of care. - Problem is new. - Symptoms are unchanged. Historical: - Allergies: SULFA (SULFONAMIDES); - Home Meds: 1. none - PMHx: Asthma; - PSHx: Adenoidectomy; - Social history: No barriers to communication noted, The patient speaks fluent British, Speaks appropriately for age, Smoking status: Patient states former smoker of tobacco. - Family history: Not pertinent. - : The pt / caregiver states he / she is not on anticoagulants. Home medication list is obtained from the patient. - Exposure Risk Screening:: None identified. MANAGER OPERATIONS AND PROCUREMENT: 05/15 16:34 LMP 04/07/2016 jo3 Vital Signs: 16:13 BP 121 / 59 LA Sitting (auto/reg); Pulse 87 LA; Resp 18 S; Temp 97.7(O); Pulse Ox 100% mt4 on R/A; Weight 83.91 kg / 184.99 lbs (R); Height 6 ft. 0 in. (182.88 cm) (R); Pain 3/10; 20:12 BP 145 / 67; Pulse 96; Resp 18; Temp 99.7(O); Pulse Ox 98% ; Pain 0/10; slm 16:13 Body Mass Index 25.09 (83.91 kg, 182.88 cm) mt4 MDM: 17:27 If pre-RCE wait time >60 minutes, inform reg. staff to do full reg ordered. kr3 17:27 If pt is female > 10 yo, order UCG ordered. kr3 17:27 Urinalysis Ordered. EDMS 17:27 Urine Test-In Lab Ordered. EDMS 17:27 Urine Culture Ordered. EDMS 18:03 Urine Test-In Lab Reviewed. mo1 18:04 Urinalysis Reviewed. mo1 18:05 Urine Test-In Lab Reviewed. mo1 18:13 Rh Only Ordered. EDMS 18:13 Complete Blood Count Ordered. EDMS 18:13 Hcg, Serum Quantitative Ordered. EDMS 18:13 BMP Ordered. EDMS 18:15 US 1st trimester Ordered. EDMS 18:21 Financial registration complete. gb 18:22 [facility] Payment Agreement was scanned into [employer] and attached to record. gb 18:48 TRANSVAGINAL US Ordered. EDMS 18:48 US 1ST TRI EA ADDITIONAL GEST Ordered. EDMS 19:04 Complete Blood Count Reviewed. mo1 19:04 Rh Only Reviewed. mo1 19:05 DUPLEX SCAN LIMITED (DOPPLER) Ordered. EDMS 19:15 BMP Reviewed. mo1 19:15 Hcg, Serum Quantitative Reviewed. mo1 21:57 T-Sheet-- Draft Copy was scanned into [employer] and attached to record. klr 05/16 10:20 Refusal of Services was scanned into [employer] and attached to record. gb Addendum: 05/17/2016 20:18 Radiology Callback: Radiology results faxed to primary care physician/provider. dr noemi gan and miladis fonseca faxed formal report of 1st trimester us for fu mlg. Signatures: Dispatcher [employer] [facility] Feliciano Hoover MD MD ml Barnhardt, Gloria, Reg Reg gb Destinee MolinaRN RN Bere SamRN RN Rosalinda MoraRN RN Rashard Mcbride PA PA mo1 Valeria Gardner LPN LPN slm Redder, Kathie klr The chart was reviewed and I authenticate all verbal orders and agree with the evaluation and treatment provided.Attachments: 05/15 18:22 [facility] Payment Agreement gb 21:57 T-Sheet-- Draft Copy klr Chart Complete MTDD
== END 2016-05-15 20:05 | disposition left against medical advice (07) ==
LOC: M ED 16:12
DX: R10.2 Pelvic and perineal pain (principal); O99.511 Diseases of the respiratory system complicating pregnancy, first trimester; J45.909 Unspecified asthma, uncomplicated; Z87.891 Personal history of nicotine dependence; Z88.2 Allergy status to sulfonamides; Z3A.00 Weeks of gestation of pregnancy not specified

== ENCOUNTER → 2016-06-02 | Outpatient (CLI) | payer OTHER ==
[2016-06-02 13:42] LABS: BASO % 0.2 % (0.0-1.0); EOS # 0.1 K/mm3 (0.0-0.50); EOS % 1.1 % (0.0-3.0); LARGE UNSTAINED CELL # 0.1 K/mm3 (0.0-0.4); LARGE UNSTAINED CELL % 1.1 % (0.0-4.0); LYMPH # 1.4 K/mm3 (1.5-6.5); LYMPH % 15.2 % (24.0-44.0); MEAN CORPUSCULAR HEMOGLOBIN 28.8 pg (27.0-33.0); MEAN CORPUSCULAR HGB CONC 33.2 g/dl (32.0-36.5); MEAN CORPUSCULAR VOLUME 86.6 fl (80.0-96.0); MONO # 0.2 K/mm3 (0.0-0.8); MONO % 2.6 % (0.0-5.0); NEUTROPHILS # 7.6 K/mm3 (1.8-7.7); NEUTROPHILS % 79.9 % (36.0-66.0); PLATELET COUNT, AUTOMATED 148 k/mm3 (150-450); RED CELL DISTRIBUTION WIDTH 12.6 % (11.5-14.5); WHITE BLOOD COUNT 9.5 K/mm3 (4.0-10.0)
[2016-06-03 10:29] LABS: HBsAg Prenatal NEGATIVE (NEGATIVE)
[2016-06-03 14:21] LABS: CONTROL LINE INT CTR LINE PRESENT; HIV SCRN NEGATIVE (NEGATIVE); HIV SCRN1 NEGATIVE (NEGATIVE)
== END | disposition home or self-care (01) ==
LOC: M LAB 12:23
PROVIDERS: ATTEND Advanced Practice Midwife
DX: Z34.81 Encounter for supervision of other normal pregnancy, first trimester (principal); Z36 Encounter for antenatal screening of mother; Z3A.00 Weeks of gestation of pregnancy not specified

== ENCOUNTER → 2016-06-29 | Outpatient (REF) | payer OTHER ==
[2016-07-01 16:13] LABS: CREATININE, SERUM 0.6 MG/DL (0.6-1.0)
[2016-07-01 16:22] LABS: CREATININE CLEARANCE, URINE 233.8 ML/MIN (75-115)
== END ==
LOC: M LAB REF 14:07
PROVIDERS: ATTEND Advanced Practice Midwife
DX: Z34.81 Encounter for supervision of other normal pregnancy, first trimester (principal); Z36 Encounter for antenatal screening of mother; Z3A.00 Weeks of gestation of pregnancy not specified

== ENCOUNTER → 2016-07-01 | Outpatient (CLI) | payer OTHER ==
[2016-07-01 14:21] LABS: ALT/SGPT 20 U/L (12-78); BILIRUBIN,TOTAL 0.2 MG/DL (0.2-1.0); GLOMERULAR FILTRATION RATE > 60.0 (>60); URIC ACID 3.4 MG/DL (2.6-6.0)
[2016-07-04 09:10] LABS: AST/SGOT 16 U/L (15-37)
== END ==
LOC: M LAB 12:51
PROVIDERS: ATTEND Advanced Practice Midwife
DX: Z34.81 Encounter for supervision of other normal pregnancy, first trimester (principal); Z36 Encounter for antenatal screening of mother; Z3A.00 Weeks of gestation of pregnancy not specified

== ENCOUNTER → 2016-08-30 | Outpatient (CLI) | payer OTHER ==
--- NOTE | 2016-08-31 04:31 | REP ---
Clinical: Anatomical evaluation. Comparison: 05/15/2016 . Findings: Examination demonstrates diamniotic dichorionic twin . motion is identified by technologist. Cervix measures 4.7 cm in length and appears closed. Concordant growth is appreciated. Gestational age by LMP 20 weeks 5 days with estimated date of delivery 01/12/2017. TWIN A: Twin A identified in cephalic presentation along the maternal left side. motion is appreciated. Amniotic fluid volume is normal and the deepest pocket measures 3.9 cm. Gestational age by current measurements 20 week 6 days. FHR equals 144 beats per minute. BPD 4.8 cm 20 weeks 3 days HC 17.8 cm 20 weeks 2 days AC 15.7 cm 20 weeks 6 days FL 3.6 cm 21 weeks 3 days HL 3.4 cm 21 weeks 3 days HC/AC ratio 1.13 Estimated weight 392 grams ( 57th percentile). Anatomical assessment demonstrates normal structures including cranium, choroid plexus, cavum, cerebellum/posterior fossa, facial features, lungs, four-chamber heart/ventricular outflow tracts, diaphragm, stomach, cord insertion/three-vessel cord, kidneys/bladder, spine, and extremities. TWIN B: Twin B identified in cephalic presentation along the maternal right side. motion is appreciated. Amniotic fluid volume is normal and the deepest pocket measures 3.7 cm. Gestational age by current measurements 21 week 3 days. FHR equals 147 beats per minute. BPD 4.7 cm 20 weeks 2 days HC 18.0 cm 20 weeks 3 days AC 16.9 cm 21 weeks 6 days FL 3.8 cm 22 weeks 1 days HL 3.7 cm 22 weeks 5 days HC/AC ratio 1.06 Estimated weight 447 grams ( 84th percentile). Anatomical assessment demonstrates normal structures including cranium, choroid plexus, cavum, cerebellum/posterior fossa, facial features, lungs, four-chamber heart/ventricular outflow tracts, diaphragm, stomach, cord insertion/three-vessel cord, kidneys/bladder, spine, and extremities. Impression: Diamniotic dichorionic twin gestation demonstrating appropriate, concordant growth. Anatomical assessment is complete and normal. Signed by Donald Rodriguez MD 08/31/2016 04:21 A
== END ==
LOC: M RAD 09:48
PROVIDERS: ATTEND Specialist
DX: Z36 Encounter for antenatal screening of mother (principal)

== ENCOUNTER → 2016-10-27 | Outpatient (CLI) | payer OTHER ==
[~2016-10-27] MED LIST: COLA100C5 PO; FERR325T3 PO; IBUP-1114 PO; OXYC1TAB23 PO; PRENTAB9 PO; TUMS500C PO
--- NOTE | 2016-10-27 16:03 | REP ---
OBSTETRIC SONOGRAPHY: MULTIPLE GESTATION. History: Twins at 28+ weeks. Follow-up anatomy. Comparison study October 03, 2016. Sonographic findings: Diamniotic dichorionic twin gestation is seen. Placenta for baby A is posterior and that for fetus B is anterior. Both are grade 1 without evidence of previa or abruption. Closed cervical length is 3.6 cm measured transabdominally. There has been concordant and appropriate interval growth. Amniotic fluid is subjectively normal. The deepest pocket of amniotic fluid surrounding twin A measures 2.9 cm and that surrounding twin B 2.5 cm. Twin A is oblique in position along the maternal right and twin B is transverse in lie with head to the maternal right and the fetus positioned along maternal left. No extrauterine abnormalities observed. Exam quality is inhibited by crowding and advanced gestational age. The following anatomic structures are identified for fetus A and are felt to be unremarkable: cranium, cavum, cerebellum and posterior fossa, lungs, diaphragm, left-sided stomach, abdominal wall cord insertion, three-vessel umbilical cord, kidneys and bladder. The following anatomic structures in fetus B are identified and felt to be unremarkable: cranium, cavum, cerebellum and posterior fossa, lungs, diaphragm, left-sided stomach, abdominal wall cord insertion, kidneys and bladder. Biometry chart fetus A: BPD 6.7 cm = 27 weeks 0 days HC 26.3 cm = 28 weeks 5 days AC 25.0 cm = 29 weeks 2 days FL 5.6 cm = 29 weeks 2 days HL 4.9 cm = 28 weeks 4 days CD 3.3 cm = 28 weeks 1 day HC/AC ratio normal 1.05. Cephalic index 0.69. Estimated weight 1349 grams 2 pounds 15 ounces, 46th percentile. S/D ratio in the umbilical cord artery by Doppler 3.17. heart rate 153 beats per minute. Biometry chart fetus B: BPD 6.8 cm = 27 weeks 2 days HC 26.7 cm = 29 weeks 1 day AC 24.5 cm = 28 weeks 5 days FL 5.6 cm = 29 weeks 4 days HL 5.1 cm = 29 weeks 5 days CD 3.4 cm = 28 weeks 6 days HC/AC ratio normal 1.09. Cephalic index is 0.68. Estimated weight 1305 grams, 2 pounds 14 ounces, 40th percentile. heart rate 136 beats per minute. S/D ratio in the umbilical cord artery by Doppler 3.29. Impression: Viable twin intrauterine gestation at 29 weeks 1 day by comparison with prior sonography. SURESH by prior sonography January 11, 2017. There is appropriate and concordant interval growth. Signed by Isaac Viera MD 10/27/2016 05:16 P
== END ==
LOC: M RAD 13:30
PROVIDERS: ATTEND Specialist
DX: O30.043 Twin pregnancy, dichorionic/diamniotic, third trimester (principal); Z36 Encounter for antenatal screening of mother; Z3A.29 29 weeks gestation of pregnancy

== ENCOUNTER → 2016-11-04 | Outpatient (CLI) | payer OTHER ==
[2016-11-04 13:40] LABS: MEAN CORPUSCULAR HEMOGLOBIN 30.2 pg (27.0-33.0); MEAN CORPUSCULAR HGB CONC 34.6 g/dl (32.0-36.5); MEAN CORPUSCULAR VOLUME 87.4 fl (80.0-96.0); RED CELL DISTRIBUTION WIDTH 14.3 % (11.5-14.5)
== END ==
LOC: M LAB 11:53
PROVIDERS: ATTEND Obstetrics & Gynecology
DX: O30.049 Twin pregnancy, dichorionic/diamniotic, unspecified trimester (principal); Z36 Encounter for antenatal screening of mother; Z3A.00 Weeks of gestation of pregnancy not specified

== ENCOUNTER → 2016-11-10 | Outpatient (CLI) | payer OTHER | LOC: M LAB 07:20 | PROVIDERS: ATTEND Advanced Practice Midwife | DX: O30.043 Twin pregnancy, dichorionic/diamniotic, third trimester (principal); Z36 Encounter for antenatal screening of mother; Z3A.00 Weeks of gestation of pregnancy not specified ==

== ENCOUNTER → 2016-11-18 | Outpatient (CLI) | payer OTHER ==
--- NOTE | 2016-11-18 10:20 | REP ---
Obstetric ultrasound for anatomy: There is a diamniotic dichorionic twin gestation. One placenta is anterior placenta is posterior. The placentas demonstrate grade 2 maturity. There is no placenta previa or abruptio. Both twins are in a transverse lie. Twin A is closest to the cervix in the lower uterine segment with the head to the maternal left. Twin B is in the uterine fundus with the head to the maternal right. heart rate of twin A is 103 6 beats per minute. heart rate of twin B is 133 beats per minute. Amniotic fluid of each twin A is subjectively normal. The deepest amniotic fluid pocket for twin A is 3.0 cm and for twin B 2.9 cm. Based on today's study gestational age for twin A is in 30 weeks 6 days and for twin B 31 weeks 2 days. weight for twin A is 1727 grams (3 pounds, 2 ounces). This is the 26th percentile. For twin B the weight is 1815 grams (4 pounds, 0 ounces). This is the 35th percentile. On the anatomic survey ultrasound dated 08/30/2016 the anatomy was normal for both twins. On the study today for twin A we are able to visualize a normal cranium, facial profile, stomach, kidneys and bladder. Because of age and lie the remainder of the anatomy could not be visualized. For twin B today we are able to visualize normal appearing cranium, facial profile, four-chamber heart, stomach, kidneys and bladder. The remainder of the anatomy could not be visualized because of age and lie. The Doppler SD ratio of the umbilical artery for twin A is 2.75 and for twin B 3.08. Signed by Kunal Gutierrez MD 11/18/2016 10:12 A
== END ==
LOC: M RAD 08:49
PROVIDERS: ATTEND Advanced Practice Midwife
DX: O30.043 Twin pregnancy, dichorionic/diamniotic, third trimester (principal); Z36 Encounter for antenatal screening of mother; Z3A.30 30 weeks gestation of pregnancy

== ENCOUNTER 2016-12-01 17:42 | Outpatient (CLI) | payer OTHER ==
[~2016-12-01] VITALS: Ht 182.9 cm; Wt 105.0 kg
[2016-12-01] MEDS ORDERED: FERR325T3 PO (17:49)
[2016-12-01] MEDS ORDERED: PRENTAB9 PO (17:49)
[2016-12-01 17:58] VITALS: BP 144/78
== END 2016-12-01 18:40 | disposition home or self-care (01) ==
LOC: M LDO 17:42
PROVIDERS: ATTEND Specialist
DX: O26.893 Other specified pregnancy related conditions, third trimester (principal); Z3A.34 34 weeks gestation of pregnancy; O30.043 Twin pregnancy, dichorionic/diamniotic, third trimester; O47.03 False labor before 37 completed weeks of gestation, third trimester; N89.8 Other specified noninflammatory disorders of vagina; Z88.2 Allergy status to sulfonamides

== ENCOUNTER → 2016-12-07 | Outpatient (CLI) | payer OTHER ==
--- NOTE | 2016-12-07 13:59 | REP ---
TWIN OB ULTRASOUND: Real-time sonographic evaluation of the gravid uterus performed. There is a living diamniotic dichorionic twin gestation. Placenta fetus A is posterior and grade 3 and placenta for fetus B is anterior and grade 3. There is no previa or abruption. Estimated gestational age is 34 weeks 6 days with EDC 01/12/2017. There has been somewhat less than expected growth. Fetus A: BPD 76 mm 30 weeks 4 days, less than 5th percentile HC 299 mm 33 weeks 1 day, 24th percentile AC 277 mm 31 weeks 6 days, less than 5th percentile FL 66 mm 33 weeks 6 days, 35th percentile HC/AC ratio 1.08. Estimated weight 2022 grams, 10th percentile. heart rate 157 beats per minute. S/d ratio 2.46. RI 0.59. position transverse with head toward the maternal right side. Amniotic fluid appears within normal limits. The deepest pocket of fluid around fetus A is 3.9 cm. Fetus B: BPD 80 mm 32 weeks 1 day, 11th percentile HC 312 mm 34 weeks 6 days, 50th percentile AC 302 mm 34 weeks 1 day, 38th percentile FL 63 mm 32 weeks 4 days, 15th percentile HC/AC ratio 1.03. Estimated weight 2226 grams, 25th percentile. heart rate 137 beats per minute. S/d ratio 2.78. RI 0.64. position is oblique on the maternal right side. Amniotic fluid appears within normal limits, with the deepest pocket of fluid around fetus B 2.3 cm. IMPRESSION: Living intrauterine twin gestation 34 weeks 6 days, EDC 01/12/2017. Fetus A shows somewhat less than expected growth as discussed above. There is appropriate growth for fetus B. Signed by Kunal Heard MD 12/07/2016 05:12 P
== END ==
LOC: M RAD 11:56
PROVIDERS: ATTEND Specialist
DX: O30.043 Twin pregnancy, dichorionic/diamniotic, third trimester (principal); Z36 Encounter for antenatal screening of mother; Z3A.34 34 weeks gestation of pregnancy

== ENCOUNTER → 2016-12-13 | Outpatient (REF) | payer OTHER | LOC: M LAB REF 17:02 | PROVIDERS: ATTEND Specialist | DX: O30.043 Twin pregnancy, dichorionic/diamniotic, third trimester (principal); Z36 Encounter for antenatal screening of mother; Z3A.00 Weeks of gestation of pregnancy not specified ==

== ENCOUNTER 2016-12-22 06:08 | Inpatient (IN) | payer OTHER ==
[~2016-12-22] VITALS: Ht 182.9 cm; Wt 105.0 kg
[~2016-12-22 06:08] MED LIST changes: -COLA100C5 PO; -IBUP-1114 PO; -OXYC1TAB23 PO; -TUMS500C PO
[2016-12-22] MEDS ORDERED: LR 800 ML IV ONE (06:45)
[2016-12-22] MEDS ORDERED: BICITRA 30ML SOLN UDC PO ONE (06:45)
[2016-12-22] MEDS ORDERED: LR 1,000 ML IV SCH ×3 (06:45→09:15)
[2016-12-22 06:49] LABS: MEAN CORPUSCULAR HEMOGLOBIN 29.7 pg (27.0-33.0); MEAN CORPUSCULAR HGB CONC 35.2 g/dl (32.0-36.5); MEAN CORPUSCULAR VOLUME 84.4 fl (80.0-96.0); RED CELL DISTRIBUTION WIDTH 14.4 % (11.5-14.5); WHITE BLOOD COUNT 8.3 K/mm3 (4.0-10.0)
[2016-12-22] MEDS ORDERED: OXYTOCIN INJ 10 UNITS/ML VIAL (J2590) As Ordered ONE (07:37)
[2016-12-22] MEDS ORDERED: MORPHINE PRES-FREE INJ 10 MG/10 ML VIAL (J2274) As Ordered ONE (07:37)
[2016-12-22] MEDS ORDERED: OXYC1TAB23 PO (07:42)
[2016-12-22] MEDS ORDERED: METOCLOPRAMIDE INJ 10MG/2ML VIAL (J2765) IV PRN ×2 (07:46→09:15)
[2016-12-22] MEDS ORDERED: ONDANSETRON 4MG/2ML VIAL (J2405) IV PRN ×3 (07:46→09:15)
[2016-12-22] MEDS ORDERED: NALBUPHINE HCL 10 MG/ML AMP (J2300) IV PRN (07:46)
[2016-12-22] MEDS ORDERED: NALOXONE INJ 0.4 MG/1 ML VIAL (J2310) IV PRN ×2 (07:46)
[2016-12-22] MEDS ORDERED: PHENYLephrine HCL 500 MCG/5 ML (100MCG/ML) SYRINGE (J2370) As Ordered ONE (08:07)
[2016-12-22] MEDS ORDERED: ONDANSETRON 4MG/2ML VIAL (J2405) As Ordered ONE (08:14)
[2016-12-22] MEDS ORDERED: KETOROLAC 60 MG/2 ML VIAL (J1885) As Ordered ONE (08:14)
[2016-12-22] MEDS ORDERED: METOCLOPRAMIDE INJ 10MG/2ML VIAL (J2765) As Ordered ONE (08:30)
[2016-12-22] MEDS ORDERED: PERCOCET 5MG/325MG TAB PO PRN ×2 (09:00→09:15)
[2016-12-22] MEDS ORDERED: MEASLES,MUMPS,RUBELLA VACCINE INJ (MMR-II) (90707) SC SCH (09:00)
[2016-12-22] MEDS: PRENATAL VITAMINS CHEWABLE TABLET PO SCH (09:00)
[2016-12-22] MEDS ORDERED: DOCUSATE SODIUM 100 MG CAP PO PRN (09:00)
[2016-12-22] MEDS ORDERED: RHOGAM 300 MCG (1500 IU) INJ (J2790) IM SCH (09:00)
[2016-12-22] MEDS ORDERED: OXYTOCIN DRIP 30 UNITS in APPROPRIATE DILUENT 1 EA IV ONE (09:00)
[2016-12-22] MEDS ORDERED: fentaNYL 100 MCG/2 ML INJECTION (J3010) IV PRN (09:15)
--- NOTE | 2016-12-22 10:47 | RO ---
DATE OF PROCEDURE: 12/22/2016 PREPROCEDURE DIAGNOSIS: Twins 37 weeks, intrauterine growth restriction (IUGR) Twin B. POSTPROCEDURE DIAGNOSIS: Twins 37 weeks, intrauterine growth restriction (IUGR) Twin B. PROCEDURE: Primary low transverse section with removal of right paratubal cyst. SURGEON: Dr. Christopher Rodríguez. SHEETFED PRESS OPERATOR: Dr. Justina Evans. ANESTHESIA: Spinal. ESTIMATED BLOOD LOSS 600 mL. URINE OUTPUT: 75 mL. FLUIDS: 2600 mL lactated Ringers (LR). FINDINGS: Twin A 2360 gram female, messi breech position, Apgars 9,9. Twin B 2340 gram male , 5 pounds 2 ounces in breech position, Apgars 9,9. Normal uterus. 5 cm right paratubal cyst at the distal end right fallopian tube. Normal left fallopian tube and ovary. DESCRIPTION OF PROCEDURE: The patient was taken to the operating room where spinal anesthesia was induced. She was prepped and draped in the a sterile fashion in the supine position. A Strickland catheter was placed. A Pfannenstiel skin incision was made with the scalpel continued through to the fascia. The fascia was nicked and extended and the fascia was dissected off the rectus muscles. The rectus muscle divided. The peritoneal cavity was entered. A bladder flap was created. A curvilinear incision was made in the lower uterine segment until clear fluid was noted. This was extended manually. Twin A was delivered from the breech position using standard maneuvers without difficulty. The cord was doubly clamped and cut. The was handed off to the awaiting nurses. Membranes were ruptured of Twin B with clear fluid noted. Twin B was delivered from the breech position standard maneuvers without difficulty. The cord was doubly clamped and cut. The infant was handed off to the awaiting nurses. Both infants cried spontaneously at the time of delivery. The placenta was expressed. The uterus was exteriorized and cleared of clots and debris. The uterine incision was closed with #0 Vicryl in a running locked fashion. A second imbricating layer of #0 Vicryl was placed. A 5 cm paratubal cyst was noted on the right side. The patient was informed of this incidental finding and the decision made to remove this cyst. The broad ligament overlying cyst was dissected sharply using Metzenbaum scissors. The cyst was then dissected off the broad ligament and fallopian tube with a combination of blunt and sharp dissection. The cyst was removed intact. The bleeding from the broad ligament was oversewn with #4-0 Vicryl. The tube appeared normal at the end of the dissection. The uterus was placed back in the abdominal cavity. The peritoneum was closed with #2-0 Vicryl in a running fashion. The fascia was closed with #0 Vicryl in a running fashion. The deep layer was irrigated and closed with #3-0 chromic. The skin was closed with #4-0 Monocryl. Sponge, needle and instrument counts were correct. MTDD
[2016-12-22 10:51] VITALS: BP 127/65
[2016-12-22 14:35] VITALS: BP 131/79
[2016-12-22] MEDS: KETOROLAC 30 MG/ML VIAL (J1885) IV SCH ×2 (15:11→20:19)
[2016-12-22 18:00] VITALS: BP 125/79
[2016-12-22 23:50] VITALS: BP 132/86
[2016-12-23] MEDS: KETOROLAC 30 MG/ML VIAL (J1885) IV SCH ×2 (01:28→09:01)
[2016-12-23 01:47] VITALS: BP 123/71
[2016-12-23 05:54] VITALS: BP 133/75
[2016-12-23 07:35] LABS: MEAN CORPUSCULAR HEMOGLOBIN 29.8 pg (27.0-33.0); MEAN CORPUSCULAR VOLUME 85.3 fl (80.0-96.0); RED CELL DISTRIBUTION WIDTH 14.5 % (11.5-14.5); WHITE BLOOD COUNT 7.5 K/mm3 (4.0-10.0)
[2016-12-23] MEDS: PRENATAL VITAMINS CHEWABLE TABLET PO SCH (09:02)
[2016-12-23] MEDS ORDERED: SLF 3 ML SYR IV PRN (09:15)
[2016-12-23 10:00] VITALS: BP 134/84
[2016-12-23] MEDS ORDERED: CALCIUM CARBONATE 500 MG CHEW U/D PO PRN (13:45)
[2016-12-23 14:00] VITALS: BP 135/82
[2016-12-23] MEDS: SLF 3 ML SYR IV SCH ×2 (14:35→22:00)
[2016-12-23] MEDS: IBUPROFEN 800 MG TAB PO SCH ×2 (15:34→23:47)
[2016-12-23 18:21] VITALS: BP 127/63
[2016-12-23] MEDS: PERCOCET 5MG/325MG TAB PO PRN (21:14)
[2016-12-23 22:00] VITALS: BP 124/66
[2016-12-24] MEDS: SLF 3 ML SYR IV SCH ×3 (06:00→22:00)
[2016-12-24 06:33] VITALS: BP 123/71
[2016-12-24] MEDS: PRENATAL VITAMINS CHEWABLE TABLET PO SCH (08:28)
[2016-12-24] MEDS: IBUPROFEN 800 MG TAB PO SCH ×3 (08:28→23:54)
[2016-12-24] MEDS: PERCOCET 5MG/325MG TAB PO PRN (14:14)
[2016-12-24 18:02] VITALS: BP 124/77
[2016-12-25] MEDS: SLF 3 ML SYR IV SCH (04:31)
[2016-12-25] MEDS: PERCOCET 5MG/325MG TAB PO PRN (04:47)
[2016-12-25 05:29] VITALS: BP 127/74
[2016-12-25] MEDS: PRENATAL VITAMINS CHEWABLE TABLET PO SCH (08:42)
[2016-12-25] MEDS: IBUPROFEN 800 MG TAB PO SCH (08:43)
[2016-12-25] MEDS ORDERED: IBUP-1114 PO (10:47)
[2016-12-25] MEDS ORDERED: OXYC1TAB23 PO ×2 (10:47→10:48)
[2016-12-25] MEDS ORDERED: COLA100C5 PO (10:48)
[2016-12-25] MEDS ORDERED: TUMS500C PO (10:49)
== END 2016-12-25 12:30 | disposition home or self-care (01) | DRG 540 ==
LOC: M LDI 06:08 → M OBS 10:30
PROVIDERS: ADMIT Specialist; ATTEND Specialist
PROC: 0UB50ZZ Excision of Right Fallopian Tube, Open Approach (ICD-10-PCS; 2016-12-22)
PROC: 10D00Z1 Extraction of Products of Conception, Low, Open Approach (ICD-10-PCS; principal; 2016-12-22 07:30)
DX: O36.5932 Maternal care for other known or suspected poor fetal growth, third trimester, fetus 2 (principal); O30.043 Twin pregnancy, dichorionic/diamniotic, third trimester; Z37.2 Twins, both liveborn; O32.1XX1 Maternal care for breech presentation, fetus 1; O32.1XX2 Maternal care for breech presentation, fetus 2; Z3A.37 37 weeks gestation of pregnancy; N83.8 Other noninflammatory disorders of ovary, fallopian tube and broad ligament; O26.893 Other specified pregnancy related conditions, third trimester

== ENCOUNTER → 2017-01-30 | Outpatient (REF) | payer OTHER ==
[~2017-01-30] MED LIST changes: +COLA100C5 PO; +IBUP-1114 PO; +OXYC1TAB23 PO; +TUMS500C PO
== END ==
LOC: M SFHCPLAZ 13:04
PROVIDERS: ATTEND Nurse Practitioner Family
DX: R30.0 Dysuria (principal)

== ENCOUNTER → 2017-09-25 | Outpatient (CLI) | payer OTHER ==
[2017-09-25 16:33] LABS: BASO % 0.4 % (0.0-1.0); EOS # 0.1 10^3/uL (0.0-0.50); EOS % 1.7 % (0.0-3.0); HEMATOCRIT 38.8 % (36.0-47.0); HEMOGLOBIN 12.8 g/dl (12.0-15.5); IMMATURE GRANULOCYTE % 0.6 % (0-3.0); LYMPH # 1.3 10^3/uL (1.5-6.5); LYMPH % 15.3 % (24.0-44.0); MEAN CORPUSCULAR VOLUME 84.9 fl (80.0-96.0); MONO # 0.3 10^3/uL (0.0-0.8); MONO % 4.1 % (0.0-5.0); NEUTROPHILS # 6.4 10^3/uL (1.8-7.7); NEUTROPHILS % 77.9 % (36.0-66.0); PLATELET COUNT, AUTOMATED 129 10^3/uL (150-450); RED BLOOD COUNT 4.57 10^6/uL (4.00-5.40); RED CELL DISTRIBUTION WIDTH 13.5 % (11.5-14.5); WHITE BLOOD COUNT 8.2 10^3/uL (4.0-10.0)
[2017-09-25 16:53] LABS: RUBELLA IgG QUALITATIVE IMMUNE (IMMUNE)
[2017-09-25 16:54] LABS: HBsAg Prenatal NEGATIVE (NEGATIVE)
[2017-09-25 17:22] LABS: HEPATITIS C VIRUS ABY INDEX < 0.0 INDEX (<0.8)
[2017-09-25 17:22] LABS: HIV 1&2 SCREEN CENTAUR NEGATIVE (NEGATIVE)
[2017-09-25 17:56] LABS: CHLAMYDIA DNA AMPLIFICATION NEGATIVE (NEGATIVE); GC DNA AMPLIFICATION NEGATIVE (NEGATIVE)
== END ==
LOC: M SMT 09:21
DX: Z36.89 Encounter for other specified antenatal screening (principal); Z3A.08 8 weeks gestation of pregnancy
CPT/HCPCS: 86762

== ENCOUNTER → 2017-11-07 | Outpatient (CLI) | payer OTHER | LOC: M RAD 10:22 | DX: Z34.82 Encounter for supervision of other normal pregnancy, second trimester (principal); Z36.89 Encounter for other specified antenatal screening; Z3A.20 20 weeks gestation of pregnancy | CPT/HCPCS: 76811 ==

== ENCOUNTER → 2017-12-04 | Outpatient (CLI) | payer OTHER | LOC: M RAD 06:13 | DX: Z36.89 Encounter for other specified antenatal screening (principal); Z3A.24 24 weeks gestation of pregnancy | CPT/HCPCS: 76816 ==

== ENCOUNTER → 2018-02-08 | Outpatient (CLI) | payer OTHER ==
[2018-02-08 13:03] LABS: BASO % 0.3 % (0.0-1.0); EOS # 0.2 10^3/uL (0.0-0.50); EOS % 1.6 % (0.0-3.0); HEMATOCRIT 39.6 % (36.0-47.0); IMMATURE GRANULOCYTE % 0.7 % (0-3.0); LYMPH # 1.6 10^3/uL (1.5-6.5); LYMPH % 16.6 % (24.0-44.0); MEAN CORPUSCULAR HEMOGLOBIN 28.8 pg (27.0-33.0); MEAN CORPUSCULAR HGB CONC 32.8 g/dl (32.0-36.5); MEAN CORPUSCULAR VOLUME 87.8 fl (80.0-96.0); MONO # 0.3 10^3/uL (0.0-0.8); MONO % 3.6 % (0.0-5.0); NEUTROPHILS # 7.4 10^3/uL (1.8-7.7); NEUTROPHILS % 77.2 % (36.0-66.0); PLATELET COUNT, AUTOMATED 118 10^3/uL (150-450); RED BLOOD COUNT 4.51 10^6/uL (4.00-5.40); RED CELL DISTRIBUTION WIDTH 13.4 % (11.5-14.5); WHITE BLOOD COUNT 9.5 10^3/uL (4.0-10.0)
[2018-02-08 13:39] LABS: GLUCOSE CHALLENGE TEST 1 HOUR 124 MG/DL (LESS THAN 140)
== END ==
LOC: M LAB 11:08
DX: Z36.89 Encounter for other specified antenatal screening (principal); Z3A.00 Weeks of gestation of pregnancy not specified
CPT/HCPCS: 82950

== ENCOUNTER → 2018-02-26 | Outpatient (CLI) | payer OTHER ==
[2018-02-26 08:53] LABS: HEMOGLOBIN 12.4 g/dl (12.0-15.5); MEAN CORPUSCULAR HEMOGLOBIN 28.2 pg (27.0-33.0); MEAN CORPUSCULAR HGB CONC 32.6 g/dl (32.0-36.5); MEAN CORPUSCULAR VOLUME 86.6 fl (80.0-96.0); RED BLOOD COUNT 4.39 10^6/uL (4.00-5.40); RED CELL DISTRIBUTION WIDTH 13.7 % (11.5-14.5); WHITE BLOOD COUNT 5.6 10^3/uL (4.0-10.0)
[2018-02-26 09:29] LABS: PLATELET COUNT, AUTOMATED 94 10^3/uL (150-450)
[2018-02-26 09:30] LABS: IMMATURE PLATELET FRACTION % 16.8 % (0.0-9.6)
== END ==
LOC: M LAB 08:36
DX: O99.89 Other specified diseases and conditions complicating pregnancy, childbirth and the puerperium (principal); Z3A.00 Weeks of gestation of pregnancy not specified
CPT/HCPCS: 85049

== ENCOUNTER → 2018-02-26 | Outpatient (REF) | payer OTHER | LOC: M LAB REF 16:54 | DX: Z34.83 Encounter for supervision of other normal pregnancy, third trimester (principal) ==

== ENCOUNTER → 2018-03-10 | Outpatient (CLI) | payer OTHER ==
[2018-03-10 10:08] LABS: BASO % 0.4 % (0.0-1.0); EOS # 0.1 10^3/uL (0.0-0.50); EOS % 1.6 % (0.0-3.0); HEMATOCRIT 39.1 % (36.0-47.0); HEMOGLOBIN 12.7 g/dl (12.0-15.5); IMMATURE GRANULOCYTE % 1.6 % (0-3.0); LYMPH # 1.7 10^3/uL (1.5-6.5); LYMPH % 21.3 % (24.0-44.0); MEAN CORPUSCULAR HEMOGLOBIN 28.2 pg (27.0-33.0); MEAN CORPUSCULAR HGB CONC 32.5 g/dl (32.0-36.5); MEAN CORPUSCULAR VOLUME 86.9 fl (80.0-96.0); MONO # 0.4 10^3/uL (0.0-0.8); MONO % 5.3 % (0.0-5.0); NEUTROPHILS # 5.5 10^3/uL (1.8-7.7); NEUTROPHILS % 69.8 % (36.0-66.0); RED CELL DISTRIBUTION WIDTH 13.2 % (11.5-14.5); WHITE BLOOD COUNT 7.9 10^3/uL (4.0-10.0)
[2018-03-10 10:13] LABS: PLATELET COUNT, AUTOMATED 99 10^3/uL (150-450)
[2018-03-10 10:35] LABS: IMMATURE PLATELET FRACTION % 20.9 % (0.0-9.6)
== END ==
LOC: M LAB 09:43
DX: D69.6 Thrombocytopenia, unspecified (principal)
CPT/HCPCS: 85049

== ENCOUNTER → 2018-03-28 | Outpatient (CLI) | payer OTHER ==
[2018-03-28 19:05] LABS: HEMATOCRIT 39.8 % (36.0-47.0); HEMOGLOBIN 12.9 g/dl (12.0-15.5); MEAN CORPUSCULAR HEMOGLOBIN 28.2 pg (27.0-33.0); MEAN CORPUSCULAR HGB CONC 32.4 g/dl (32.0-36.5); MEAN CORPUSCULAR VOLUME 87.1 fl (80.0-96.0); PLATELET COUNT, AUTOMATED 111 10^3/uL (150-450); RED BLOOD COUNT 4.57 10^6/uL (4.00-5.40); RED CELL DISTRIBUTION WIDTH 14.1 % (11.5-14.5)
== END ==
LOC: M SMT 14:05
DX: O99.113 Other diseases of the blood and blood-forming organs and certain disorders involving the immune mechanism complicating pregnancy, third trimester (principal)
CPT/HCPCS: 85027

== ENCOUNTER 2018-03-30 05:37 | Inpatient (IN) | payer OTHER ==
[2018-03-30] MEDS: BICITRA 30ML SOLN UDC PO (06:00)
[2018-03-30] MEDS: LR 1,000 ML IV ×3 (06:00→14:00)
[2018-03-30 06:31] LABS: HEMATOCRIT 40.1 % (36.0-47.0); HEMOGLOBIN 13.3 g/dl (12.0-15.5); MEAN CORPUSCULAR HEMOGLOBIN 28.2 pg (27.0-33.0); MEAN CORPUSCULAR HGB CONC 33.2 g/dl (32.0-36.5); MEAN CORPUSCULAR VOLUME 85.1 fl (80.0-96.0); PLATELET COUNT, AUTOMATED 113 10^3/uL (150-450); POSITIVE MORPH POS FLAG; RED BLOOD COUNT 4.71 10^6/uL (4.00-5.40); RED CELL DISTRIBUTION WIDTH 13.9 % (11.5-14.5); WHITE BLOOD COUNT 11.4 10^3/uL (4.0-10.0)
[2018-03-30] MEDS: LACTATED RINGER'S 1000 ML IV (06:55)
[2018-03-30] MEDS ORDERED: LR 1,000 ML IV ×2 (07:51→22:22)
[2018-03-30] MEDS: OXYTOCIN DRIP 30 UNITS in APPROPRIATE DILUENT 1 EA IV ×2 (11:22→22:22)
[2018-03-30 17:42] LABS: HEMATOCRIT 37.9 % (36.0-47.0); HEMOGLOBIN 12.5 g/dl (12.0-15.5); MEAN CORPUSCULAR HEMOGLOBIN 28.4 pg (27.0-33.0); MEAN CORPUSCULAR VOLUME 86.1 fl (80.0-96.0); PLATELET COUNT, AUTOMATED 106 10^3/uL (150-450); RED CELL DISTRIBUTION WIDTH 14.1 % (11.5-14.5)
[2018-03-30 17:43] LABS: IMMATURE PLATELET FRACTION % 23.5 % (0.0-9.6)
[2018-03-30] MEDS ORDERED: FENTANYL 2MCG/ML ROPIVACAINE 0.2% IN 0.9% NACL 100ML IVBAG As Ordered (17:47)
[2018-03-30] MEDS: FENTANYL/ROPIVACAINE/NACL BAG 100 ML EPIDURAL (18:55)
[2018-03-30] MEDS ORDERED: ePHEDrine SULFATE 25 MG/5 ML(5MG/ML) SYRINGE IV (19:00)
[2018-03-30] MEDS ORDERED: EPIDURAL/PCA KEYS XX (19:00)
[2018-03-30] MEDS ORDERED: diphenhydrAMINE INJ 50MG/ML VIAL (J1200) IV (19:00)
[2018-03-30] MEDS ORDERED: ONDANSETRON 4MG/2ML VIAL (J2405) IV ×2 (19:00→22:30)
[2018-03-30] MEDS ORDERED: EPIDURAL COMMENT XX (19:00)
[2018-03-30] MEDS ORDERED: NALOXONE INJ 0.4 MG/1 ML VIAL (J2310) IV (19:00)
[2018-03-30] MEDS ORDERED: REFRIGERATOR IV KEYS XX (19:00)
[2018-03-30] MEDS ORDERED: MEASLES,MUMPS,RUBELLA VACCINE INJ (MMR-II) (90707) SC (22:30)
[2018-03-30] MEDS ORDERED: RHOGAM 300 MCG (1500 IU) INJ (J2790) IM (22:30)
[2018-03-30] MEDS ORDERED: PROMETHAZINE 25 MG TAB PO (22:30)
[2018-03-30] MEDS ORDERED: DOCUSATE SODIUM 100 MG CAP PO (22:30)
[2018-03-30] MEDS ORDERED: ACETAMINOPHEN 500 MG TAB PO (22:30)
[2018-03-31] MEDS: IBUPROFEN 800 MG TAB PO (08:29)
[2018-03-31] MEDS: DIBUCAINE 1% OINTMENT 30GM TOP (08:29)
[2018-03-31] MEDS: PRENATAL VITAMINS CHEWABLE TABLET PO (08:29)
[2018-04-01] MEDS: PRENATAL VITAMINS CHEWABLE TABLET PO (08:41)
== END 2018-04-01 11:00 | disposition home or self-care (01) | DRG 560 ==
LOC: M LDI 05:37 → M OBS 23:32
PROVIDERS: Obstetrics & Gynecology
PROC: 10E0XZZ Delivery of Products of Conception, External Approach (ICD-10-PCS; principal; 2018-03-30)
PROC: 0HQ9XZZ Repair Perineum Skin, External Approach (ICD-10-PCS; 2018-03-30)
PROC: 10907ZC Drainage of Amniotic Fluid, Therapeutic from Products of Conception, Via Natural or Artificial Opening (ICD-10-PCS; 2018-03-30)
PROC: 3E033VJ Introduction of Other Hormone into Peripheral Vein, Percutaneous Approach (ICD-10-PCS; 2018-03-30)
DX: O34.211 Maternal care for low transverse scar from previous cesarean delivery (principal); O48.0 Post-term pregnancy; Z3A.40 40 weeks gestation of pregnancy; O70.0 First degree perineal laceration during delivery; Z37.0 Single live birth

== ENCOUNTER → 2018-06-25 | Outpatient (REF) | payer OTHER ==
[~2018-06-25] MED LIST changes: +MAPA500T2 PO
== END ==
LOC: M LAB REF 13:17
PROVIDERS: ATTEND Obstetrics & Gynecology
DX: R39.15 Urgency of urination (principal)

== ENCOUNTER 2018-07-04 12:04 | Day surgery (SDC) | payer OTHER ==
[~2018-07-04] VITALS: Ht 182.9 cm; Wt 89.4 kg
[~2018-07-04 12:04] MED LIST changes: +KETOROLAC 60 MG/2 ML VIAL (J1885) As Ordered ONE; +LIDOCAINE 2% INJ 100 MG/5 ML SDV (FOR ANES.) As Ordered ONE; +LR 1,000 ML IV ONE; +MIDAZOLAM INJ 2 MG/2 ML VIAL (J2250) As Ordered ONE; +ONDANSETRON 4MG/2ML VIAL (J2405) As Ordered ONE; +PROPOFOL 200 MG/20 ML VIAL As Ordered ONE; +ROCURONIUM BROMIDE 50 MG/5 ML VIAL As Ordered ONE; +dexameTHASONE 4 MG/ML 1ML VIAL (J1100) As Ordered ONE; +fentaNYL 250 MCG/5 ML INJECTION (J3010) As Ordered ONE
[2018-07-04 12:24] LABS: HEMATOCRIT 40.3 % (36.0-47.0); MEAN CORPUSCULAR HEMOGLOBIN 27.6 pg (27.0-33.0); MEAN CORPUSCULAR HGB CONC 32.3 g/dl (32.0-36.5); MEAN CORPUSCULAR VOLUME 85.6 fl (80.0-96.0); PLATELET COUNT, AUTOMATED 149 10^3/uL (150-450); RED BLOOD COUNT 4.71 10^6/uL (4.00-5.40); WHITE BLOOD COUNT 5.3 10^3/uL (4.0-10.0)
[2018-07-04] MEDS ORDERED: SILVER NITRATE APPLICATOR As Ordered ONE (12:30)
[2018-07-04] MEDS ORDERED: BUPIVACAINE HCL 0.25% 10 ML VIAL As Ordered ONE (12:31)
[2018-07-04] MEDS ORDERED: ACETAMINOPHEN 1000MG 100ML IV BTL (OFIRMEV) (J0131 PER 10MG) As Ordered ONE (12:45)
[2018-07-04 13:00] LABS: HCG, SERUM QUALITATIVE NEGATIVE (NEGATIVE)
[2018-07-04] MEDS ORDERED: PHENYLephrine HCL 500 MCG/5 ML (100MCG/ML) SYRINGE (J2370) As Ordered ONE (13:30)
[2018-07-04] MEDS ORDERED: METOCLOPRAMIDE INJ 10MG/2ML VIAL (J2765) As Ordered ONE (13:44)
[2018-07-04] MEDS ORDERED: SUGAMMADEX SODIUM 500 MG/5 ML VIAL (BRIDION) As Ordered ONE (14:00)
[2018-07-04] MEDS ORDERED: PERCOCET PO (14:36)
[2018-07-04] MEDS ORDERED: IBUP80TA PO (14:38)
[2018-07-04] MEDS ORDERED: fentaNYL 100 MCG/2 ML INJECTION (J3010) IV PRN (14:45)
[2018-07-04] MEDS ORDERED: LR 1,000 ML IV SCH (14:45)
[2018-07-04] MEDS ORDERED: PERCOCET 5MG/325MG TAB PO PRN (14:45)
[2018-07-04] MEDS ORDERED: HYDROMORPHONE HCL 0.5 MG/ 0.5 ML SYRINGE (J1170 PER 1) IV PRN (15:00)
[2018-07-04 15:30] VITALS: BP 129/80
--- NOTE | 2018-07-05 08:13 | RO ---
DATE OF PROCEDURE: 07/04/2018 PREOPERATIVE DIAGNOSIS: Satisfied parity. POSTOPERATIVE DIAGNOSIS: Satisfied parity. PROCEDURE PERFORMED: Laparoscopic bilateral salpingectomy. SURGEON: Dr. Orlando Figueredo POLICE LIAISON: None. ANESTHESIA: General endotracheal. SPECIMENS TO PATHOLOGY: Bilateral fallopian tubes. ESTIMATED BLOOD LOSS: 20 mL. FLUIDS REPLACED: 600 mL lactated Ringer's DRAINS: Strickland catheter 50 mL urine output. COMPLICATIONS: None. PREOPERATIVE ANTIBIOTICS: None indicated. INDICATION: The patient is a 27-year-old G3, P4 with satisfied parity. She has requested permanent tubal sterilization via laparoscopic bilateral salpingectomy. All available control/sterilization treatment options were reviewed with the patient in the office. FINDINGS: Normal uterus and bilateral adnexa/ovaries. Normal appearing liver edge, gallbladder, appendix not visualized (retrocecal?) and no evidence of inflammation. DESCRIPTION OF PROCEDURE: The patient was counseled and consented on risks, benefits, indications and alternative of the procedure. Informed consent was obtained. She was taken to the operating room with IV running and placed on operating table in the dorsal supine position. General anesthesia was administered and the airway was secured without any difficulty. She was placed in the low lithotomy position. She was prepared and draped in a normal sterile fashion and a time- out was performed per protocol. A Strickland catheter was placed under sterile conditions. A sterile speculum placed into the vagina with good visualization of the cervix. The anterior lip of the cervix grasped with single-tooth tenaculum and downward traction was applied. The ZUMI uterine manipulator was placed without any difficulty. The single-tooth tenaculum was removed. Tenaculum sites were noted be hemostatic. A sterile speculum was removed. A glove switch was performed and attention was turned to the abdomen. 0.5% Marcaine was injected into the umbilicus. A 5 mm umbilical incision was made with an 11 blade. Through this incision a Veress needle was placed into the intraperitoneal cavity. Intraperitoneal placement was confirmed with ease of flow of normal saline, positive drop test and negative return on aspiration. The opening pressure was 3 mmHg. The abdomen was insufflated with 2 liters of gas. The Veress needle was removed. The size 5 mm XL laparoscopic trocar was placed into the intraperitoneal cavity without any difficulty. No incidental bleeding or injury was noted. The patient was placed in the steep Trendelenburg position two additional laparoscopic port sites were placed in the left lower abdomen through 5 mm incisions. Through these 5 mm incision of the left lower abdomen, a size 8 and a size 5 mm XL laparoscopic trocar were placed under direct visualization without any difficulty. Attention was first turned to the left fallopian tube. The left fallopian tube was followed out to the fimbriated end and grasped and elevated. The underlying mesosalpinx salpinx/broad ligament was sequentially clamped, coagulated and transected with the LigaSure device to the level of the cornu. At the level of cornu, the left fallopian tube was clamped perpendicularly, coagulated and transected thus amputating the left fallopian tube. The left fallopian tube was brought through the 8 mm cannula without any difficulty and sent for permanent section. In a similar fashion, the right fallopian tube was followed out to the fimbriated end and grasped at the fimbriated end and elevated. The underlying mesosalpinx was sequentially clamped, coagulated and transected until the level of the cornu was reached. At the level of cornu, the right fallopian tube was clamped perpendicularly, coagulated, and transected thus amputating the right fallopian tube. The right fallopian tube was brought through the 8 mm cannula without any difficulty and sent to pathology for permanent section. Excellent hemostasis was noted throughout the pelvis and specifically around each operative site. Gas was released and inspection during gas release revealed continued hemostasis. Once the gas was released, the cannulas were removed. The skin incisions were closed with #4-0 Monocryl in subcuticular fashion and reinforced with Dermabond. All the instruments were removed from the vagina to include the ZUMI uterine manipulator. The Strickland catheter was removed. The tenaculum sites continued to remain hemostatic. All instruments were accounted for. Sponge, lap, needle, instrument counts were correct times three and the patient was transferred to the postanesthesia care unit (PACU) in good and stable condition. BHAVNA
== END 2018-07-04 15:44 | disposition home or self-care (01) ==
LOC: M SDC 12:04
PROVIDERS: ATTEND Obstetrics & Gynecology
DX: Z30.2 Encounter for sterilization (principal); K21.9 Gastro-esophageal reflux disease without esophagitis; F41.9 Anxiety disorder, unspecified; J45.909 Unspecified asthma, uncomplicated; F17.210 Nicotine dependence, cigarettes, uncomplicated; Z88.2 Allergy status to sulfonamides; Z79.899 Other long term (current) drug therapy
CPT/HCPCS: 36415; 58661; 84703; 85027; 86850; 86900; 86901; 88302; J0131; J1100; J1885; J2250; J2370; J2405; J2765; J3010

== ENCOUNTER → 2019-06-05 | Outpatient (REF) | payer OTHER ==
[~2019-06-05] MED LIST changes: +IBUP80TA PO; -KETOROLAC 60 MG/2 ML VIAL (J1885) As Ordered ONE; -LIDOCAINE 2% INJ 100 MG/5 ML SDV (FOR ANES.) As Ordered ONE; -LR 1,000 ML IV ONE; -MIDAZOLAM INJ 2 MG/2 ML VIAL (J2250) As Ordered ONE; -ONDANSETRON 4MG/2ML VIAL (J2405) As Ordered ONE; +PERCOCET PO; -PROPOFOL 200 MG/20 ML VIAL As Ordered ONE; -ROCURONIUM BROMIDE 50 MG/5 ML VIAL As Ordered ONE; -dexameTHASONE 4 MG/ML 1ML VIAL (J1100) As Ordered ONE; -fentaNYL 250 MCG/5 ML INJECTION (J3010) As Ordered ONE
== END ==
LOC: M LAB REF 12:27
PROVIDERS: ATTEND Nurse Practitioner Family
DX: R30.0 Dysuria (principal)

== ENCOUNTER → 2019-07-02 | Outpatient (REF) | payer OTHER ==
[2019-07-02 23:06] LABS: CHLAMYDIA DNA AMPLIFICATION NEGATIVE (NEGATIVE); GC DNA AMPLIFICATION NEGATIVE (NEGATIVE)
== END ==
LOC: M LAB 21:09
PROVIDERS: ATTEND Physician Assistant
DX: R30.0 Dysuria (principal)

== ENCOUNTER → 2019-10-01 | Outpatient (REF) | payer OTHER ==
[2019-10-01 19:22] LABS: CHLAMYDIA DNA AMPLIFICATION NEGATIVE (NEGATIVE); GC DNA AMPLIFICATION NEGATIVE (NEGATIVE)
== END ==
LOC: M SFHCWAGY 16:50
PROVIDERS: ATTEND Nurse Practitioner Women's Health
DX: N93.0 Postcoital and contact bleeding (principal); N94.10 Unspecified dyspareunia; N89.8 Other specified noninflammatory disorders of vagina; Z11.3 Encounter for screening for infections with a predominantly sexual mode of transmission

== ENCOUNTER → 2019-10-03 | Outpatient (CLI) | payer OTHER ==
--- NOTE | 2019-10-03 16:30 | REP ---
REASON: Dyspareunia Transvesical and transvaginal imaging was obtained. The uterus measures 9.8 x 5.1 x 6.2 cm. The parenchymal echo pattern is within normal limits. The endometrial echo complex is unremarkable appearing measuring 12 mm in thickness. Right ovary measures 4.3 x 2.1 x 2.5 cm. Within the right ovary, there is a 2.4 x 1.5 x 1.8 cm sized hypoechoic structure. Left ovary measures 3 x 1.8 x 2.9 cm and is within normal limits with an RI of 0.51. There is no free fluid in the cul-de-sac. IMPRESSION: Probable resolving hemorrhagic right ovarian cyst as described above. 2-month followup is suggested. The examination is otherwise unremarkable. Electronically Signed by Adam Ayoub DO 10/03/2019 05:08 P
== END ==
LOC: M WHC 14:22
PROVIDERS: ATTEND Nurse Practitioner Women's Health
DX: N83.201 Unspecified ovarian cyst, right side (principal); N93.0 Postcoital and contact bleeding; N94.10 Unspecified dyspareunia

== ENCOUNTER → 2020-07-28 | Outpatient (CLI) | payer OTHER ==
[2020-07-28 19:02] LABS: BASO % 0.3 % (0.0-1.0); EOS # 0.2 10^3/uL (0.0-0.5); EOS % 3.8 % (0.0-3.0); HEMATOCRIT 41.8 % (36.0-47.0); HEMOGLOBIN 13.5 g/dl (12.0-15.5); LYMPH # 1.5 10^3/uL (1.5-5.0); LYMPH % 26.9 % (24.0-44.0); MEAN CORPUSCULAR HEMOGLOBIN 29.2 pg (27.0-33.0); MEAN CORPUSCULAR HGB CONC 32.3 g/dl (32.0-36.5); MEAN CORPUSCULAR VOLUME 90.5 fl (80.0-96.0); MONO # 0.3 10^3/uL (0.0-0.8); MONO % 5.2 % (2.0-8.0); NEUTROPHILS # 3.6 10^3/uL (1.5-8.5); NEUTROPHILS % 63.3 % (36.0-66.0); PLATELET COUNT, AUTOMATED 117 10^3/uL (150-450); RED BLOOD COUNT 4.62 10^6/uL (4.00-5.40); WHITE BLOOD COUNT 5.7 10^3/uL (4.0-10.0)
[2020-07-28 19:05] LABS: APPEARANCE, URINE HAZY (CLEAR); BACTERIA, URINE AUTO 1+ (NEGATIVE); BILIRUBIN, URINE AUTO NEGATIVE (NEGATIVE); BLOOD, URINE BLOOD NEGATIVE (NEGATIVE); COLOR, URINE YELLOW (YELLOW); GLUCOSE, URINE (UA) AUTO NEGATIVE (NEGATIVE); KETONE, URINE AUTO NEGATIVE (NEGATIVE); LEUKOCYTE ESTERASE, URINE AUTO NEGATIVE (NEGATIVE); MUCUS, URINE SMALL (NEGATIVE); NITRITE, URINE AUTO NEGATIVE (NEGATIVE); PROTEIN, URINE AUTO NEGATIVE (NEGATIVE); RBC, URINE AUTO 1 /HPF (0-3); SPECIFIC GRAVITY URINE AUTO 1.012 (1.002-1.035); SQUAMOUS EPITHELIAL CELL UR AU 5 /HPF (0-6); UROBILINOGEN, URINE AUTO 0.2 mg/dL (0.0-2.0); WBC, URINE AUTO 0 /HPF (0-3)
[2020-07-28 19:28] LABS: ALT/SGPT 17 U/L (12-78); BILIRUBIN,TOTAL 0.4 MG/DL (0.2-1.0); BLOOD UREA NITROGEN 8 MG/DL (7-18); CALCIUM LEVEL 9.4 MG/DL (8.5-10.1); CARBON DIOXIDE LEVEL 30 MEQ/L (21-32); CHLORIDE LEVEL 108 MEQ/L (98-107); CHOLESTEROL LEVEL 154 MG/DL (<200); CHOLESTEROL RISK RATIO 2.406 (<5); CREATININE FOR GFR 0.68 MG/DL (0.55-1.30); FREE T4 0.89 NG/DL (0.76-1.46); GLOMERULAR FILTRATION RATE > 60.0 (>60); GLUCOSE, FASTING 80 MG/DL (70-100); HDL CHOLESTEROL 64 MG/DL (>40); LDL CHOLESTEROL 77 MG/DL (<100); NON-HDL-C 90 MG/DL; POTASSIUM SERUM 3.8 MEQ/L (3.5-5.1); SODIUM LEVEL 140 MEQ/L (136-145); THYROID STIMULATING HORMONE 0.783 uIU/ML (0.358-3.740); TRIGLYCERIDES LEVEL 64 MG/DL (<150)
== END ==
LOC: M LAB 16:57
PROVIDERS: ATTEND Nurse Practitioner Family
DX: Z13.228 Encounter for screening for other metabolic disorders (principal)

== ENCOUNTER 2020-09-21 21:39 | Emergency (ER) | payer OTHER ==
[~2020-09-21] VITALS: Ht 182.9 cm; Wt 94.3 kg
[2020-09-21] MEDS ORDERED: ESTA0.25 (21:46)
[2020-09-21] MEDS ORDERED: DOXY100C (21:46)
[2020-09-21] MEDS ORDERED: BOOSTRIX/ADACEL VACCINE (DIPHTH/PERTUSS/ACELL/TETANUS) 0.5ML SYR IM ONE (22:15)
[2020-09-21] MEDS ORDERED: LIDOCAINE 1% MDV 20ML VIAL SC ONE (22:15)
--- NOTE | 2020-09-21 22:37 | REPVR ---
PROCEDURE INFORMATION: Exam: CT Head Without Contrast Exam date and time: 09/21/2020 10:29 PM Age: 29 years old Clinical indication: Injury or trauma; Fall; Blunt trauma (contusions or hematomas) TECHNIQUE: Imaging protocol: Computed tomography of the head without contrast. Radiation optimization: All CT scans at this facility use at least one of these dose optimization techniques: automated exposure control; mA and/or kV adjustment per patient size (includes targeted exams where dose is matched to clinical indication); or iterative reconstruction. COMPARISON: No relevant prior studies available. FINDINGS: Brain: Normal. No hemorrhage. Unremarkable white matter. No mass effect. Cerebral ventricles: No ventriculomegaly. Paranasal sinuses: Visualized sinuses are unremarkable. No fluid levels. Mastoid air cells: Visualized mastoid air cells are well aerated. Bones/joints: Unremarkable. No acute fracture. Soft tissues: Left superior periorbital soft tissue contusion and laceration. IMPRESSION: No acute intracranial abnormality. Electronically signed by: Ezequiel Scott On 09/21/2020 22:37:08 PM
[2020-09-21] MEDS ORDERED: CEPH500C PO (23:29)
[2020-09-21] MEDS ORDERED: CEPHALEXIN 500 MG CAP PO ONE (23:30)
[2020-09-21 23:53] VITALS: BP 128/74
== END 2020-09-21 23:56 | disposition home or self-care (01) ==
LOC: M ED 21:39
DX: S01.91XA Laceration without foreign body of unspecified part of head, initial encounter (principal); S06.0X0A Concussion without loss of consciousness, initial encounter; W29.0XXA Contact with powered kitchen appliance, initial encounter; Y92.59 Other trade areas as the place of occurrence of the external cause; Y93.89 Activity, other specified; Y99.8 Other external cause status; Z87.891 Personal history of nicotine dependence; Z88.1 Allergy status to other antibiotic agents; Z88.2 Allergy status to sulfonamides

== ENCOUNTER → 2020-12-23 | Outpatient (CLI) | payer OTHER ==
[~2020-12-23] MED LIST changes: +CEPH500C PO; +DOXY100C3; +ESTA0.25
[2020-12-23 17:27] LABS: C REACTIVE PROTEIN QUANTITATIV < 0.30 MG/DL (0.00-0.30); RHEUMATOID FACTOR QUANT < 10.0 IU/ML (<15.0)
--- NOTE | 2020-12-24 06:48 | REP ---
INDICATION: OTHER SPECIFIED SOFT TISSUE DISORDERS COMPARISON: None. TECHNIQUE: AP, lateral, bilateral oblique and sunrise views right and left knee. FINDINGS: The osseous structures and joint spaces are intact, bilaterally symmetric and normal/age-appropriate. There is no evidence for acute fracture or dislocation. No joint effusion is appreciated. Surrounding soft tissues are unremarkable. No subcutaneous emphysema or radiodense foreign body. No significant osteoarthritic or inflammatory arthritic changes are appreciated. IMPRESSION: Normal examination. Symmetric age-appropriate images. No obvious arthritic changes. <Electronically signed by Donald Rodriguez > 12/24/20 0601
--- NOTE | 2020-12-24 07:00 | REP ---
INDICATION: OTHER SPECIFIED SOFT TISSUE DISORDERS COMPARISON: None. TECHNIQUE: AP, lateral, bilateral oblique views right and left hand. FINDINGS: The bilateral osseous structures and joint spaces are intact, symmetric and age-appropriate. No overt osteoarthritic or inflammatory arthritic changes are appreciated. There is no evidence for acute fracture or dislocation. Surrounding soft tissues are unremarkable. No subcutaneous emphysema or radiodense foreign body. IMPRESSION: Normal symmetric age-appropriate bilateral hand series. <Electronically signed by Donald Rodriguez > 12/24/20 0657
== END ==
LOC: M LAB 15:17
PROVIDERS: ATTEND Nurse Practitioner Family
DX: M79.89 Other specified soft tissue disorders (principal)

== ENCOUNTER → 2021-04-29 | Outpatient (CLI) | payer OTHER | LOC: M SLEEP HO 10:09 | PROVIDERS: ATTEND Nurse Practitioner Family | DX: R40.0 Somnolence (principal) ==

== ENCOUNTER → 2021-06-01 | Outpatient (REF) | payer OTHER ==
[2021-06-01 12:09] LABS: BASO % 0.5 % (0.0-1.0); EOS # 0.2 10^3/uL (0.0-0.5); EOS % 3.3 % (0.0-3.0); HEMATOCRIT 41.6 % (36.0-47.0); HEMOGLOBIN 13.5 g/dl (12.0-15.5); LYMPH # 1.5 10^3/uL (1.5-5.0); LYMPH % 26.7 % (24.0-44.0); MEAN CORPUSCULAR HEMOGLOBIN 28.7 pg (27.0-33.0); MEAN CORPUSCULAR HGB CONC 32.5 g/dl (32.0-36.5); MEAN CORPUSCULAR VOLUME 88.3 fl (80.0-96.0); MONO # 0.4 10^3/uL (0.0-0.8); MONO % 6.6 % (2.0-8.0); NEUTROPHILS # 3.4 10^3/uL (1.5-8.5); NEUTROPHILS % 62.4 % (36.0-66.0); PLATELET COUNT, AUTOMATED 142 10^3/uL (150-450); RED BLOOD COUNT 4.71 10^6/uL (4.00-5.40); WHITE BLOOD COUNT 5.5 10^3/uL (4.0-10.0)
[2021-06-01 12:10] LABS: APPEARANCE, URINE HAZY (CLEAR); BACTERIA, URINE AUTO NEGATIVE (NEGATIVE); BILIRUBIN, URINE AUTO NEGATIVE (NEGATIVE); BLOOD, URINE BLOOD NEGATIVE (NEGATIVE); COLOR, URINE YELLOW (YELLOW); GLUCOSE, URINE (UA) AUTO NEGATIVE (NEGATIVE); KETONE, URINE AUTO NEGATIVE (NEGATIVE); LEUKOCYTE ESTERASE, URINE AUTO NEGATIVE (NEGATIVE); NITRITE, URINE AUTO NEGATIVE (NEGATIVE); PROTEIN, URINE AUTO NEGATIVE (NEGATIVE); RBC, URINE AUTO 1 /HPF (0-3); SPECIFIC GRAVITY URINE AUTO 1.012 (1.002-1.035); SQUAMOUS EPITHELIAL CELL UR AU 3 /HPF (0-6); UROBILINOGEN, URINE AUTO 0.2 mg/dL (0.0-2.0); WBC, URINE AUTO 3 /HPF (0-3)
[2021-06-01 12:38] LABS: TOTAL PROTEIN,RANDOM URINE 7.3 MG/DL (0.0-12.0)
[2021-06-01 12:48] LABS: ALBUMIN 3.8 GM/DL (3.2-5.2); ALT/SGPT 53 U/L (12-78); BILIRUBIN,TOTAL 0.3 MG/DL (0.2-1.0); BLOOD UREA NITROGEN 8 MG/DL (7-18); CALCIUM LEVEL 9.2 MG/DL (8.5-10.1); CARBON DIOXIDE LEVEL 23 MEQ/L (21-32); CHLORIDE LEVEL 110 MEQ/L (98-107); COMPLEMENT C3 98 MG/DL (90-180); COMPLEMENT C4 25 MG/DL (10-40); CREATININE FOR GFR 0.68 MG/DL (0.55-1.30); GLOMERULAR FILTRATION RATE > 60.0 (>60); GLUCOSE, FASTING 97 MG/DL (70-100); SODIUM LEVEL 140 MEQ/L (136-145); TOTAL PROTEIN 6.9 GM/DL (6.4-8.2)
[2021-06-01 12:51] LABS: FREE T4 0.97 NG/DL (0.76-1.46); THYROID STIMULATING HORMONE 0.954 uIU/ML (0.358-3.740); TOTAL 25(OH) VITAMIN D 22.6 NG/ML (30.0-100.0)
[2021-06-01 13:07] LABS: ERYTHROCYTE SEDIMENTATION RATE 6 mm/hr (0-20)
== END ==
LOC: M SFHCRHEU 11:06
PROVIDERS: ATTEND Internal Medicine Rheumatology
DX: R76.8 Other specified abnormal immunological findings in serum (principal); M25.50 Pain in unspecified joint; I73.00 Raynaud's syndrome without gangrene

== ENCOUNTER → 2022-02-03 | Outpatient (REF) | payer OTHER | LOC: M LAB REF 08:35 | PROVIDERS: ATTEND Physician Assistant | DX: R05.9 Cough, unspecified (principal); J02.9 Acute pharyngitis, unspecified; R53.83 Other fatigue ==

== ENCOUNTER → 2022-05-16 | Outpatient (REF) | payer OTHER | LOC: M LAB REF 12:33 | PROVIDERS: ATTEND Physician Assistant | DX: J02.9 Acute pharyngitis, unspecified (principal) ==

== ENCOUNTER → 2022-08-17 | Outpatient (REF) | payer OTHER | LOC: M PLALAB 09:06 | PROVIDERS: ATTEND Nurse Practitioner Family | DX: Z53.9 Procedure and treatment not carried out, unspecified reason (principal) ==

== ENCOUNTER → 2022-08-22 | Outpatient (CLI) | payer OTHER | LOC: M PLAIMG 09:37 | PROVIDERS: ATTEND Nurse Practitioner Family | DX: M54.2 Cervicalgia (principal) ==

== ENCOUNTER → 2022-08-22 | Outpatient (CLI) | payer OTHER ==
[2022-08-22 15:10] LABS: HEPATITIS B SURFACE ANTIGEN NEGATIVE (NEGATIVE)
[2022-08-22 15:22] LABS: HIV 1&2 SCREEN CENTAUR NEGATIVE (NEGATIVE)
[2022-08-22 15:31] LABS: HEPATITIS B CORE ANTIBODY IGM NEGATIVE (NEGATIVE)
== END ==
LOC: M PLALAB 09:45
PROVIDERS: ATTEND Nurse Practitioner Family
DX: Z11.3 Encounter for screening for infections with a predominantly sexual mode of transmission (principal)

== ENCOUNTER → 2022-08-22 | Outpatient (CLI) | payer OTHER ==
[2022-08-22 13:48] LABS: APPEARANCE, URINE CLEAR (CLEAR); BACTERIA, URINE AUTO NEGATIVE (NEGATIVE); BILIRUBIN, URINE AUTO NEGATIVE (NEGATIVE); BLOOD, URINE BLOOD NEGATIVE (NEGATIVE); COLOR, URINE YELLOW (YELLOW); GLUCOSE, URINE (UA) AUTO NEGATIVE (NEGATIVE); KETONE, URINE AUTO NEGATIVE (NEGATIVE); LEUKOCYTE ESTERASE, URINE AUTO NEGATIVE (NEGATIVE); MUCUS, URINE SMALL (NEGATIVE); NITRITE, URINE AUTO NEGATIVE (NEGATIVE); PROTEIN, URINE AUTO NEGATIVE (NEGATIVE); RBC, URINE AUTO 1 /HPF (0-3); SPECIFIC GRAVITY URINE AUTO 1.015 (1.002-1.035); SQUAMOUS EPITHELIAL CELL UR AU 3 /HPF (0-6); UROBILINOGEN, URINE AUTO 0.2 mg/dL (0.0-2.0); WBC, URINE AUTO 1 /HPF (0-3)
[2022-08-22 14:21] LABS: BASO % 0.5 % (0.0-1.0); EOS # 0.2 10^3/uL (0.0-0.5); EOS % 3.7 % (0.0-3.0); HEMATOCRIT 42.9 % (36.0-47.0); LYMPH # 1.5 10^3/uL (1.5-5.0); LYMPH % 27.3 % (24.0-44.0); MEAN CORPUSCULAR HEMOGLOBIN 29.3 pg (27.0-33.0); MEAN CORPUSCULAR HGB CONC 32.6 g/dl (32.0-36.5); MEAN CORPUSCULAR VOLUME 89.7 fl (80.0-96.0); MONO # 0.3 10^3/uL (0.0-0.8); MONO % 5.1 % (2.0-8.0); NEUTROPHILS # 3.6 10^3/uL (1.5-8.5); PLATELET COUNT, AUTOMATED 134 10^3/uL (150-450); RED BLOOD COUNT 4.78 10^6/uL (4.00-5.40); WHITE BLOOD COUNT 5.6 10^3/uL (4.0-10.0)
[2022-08-22 14:32] LABS: ERYTHROCYTE SEDIMENTATION RATE 5 mm/hr (0-20)
[2022-08-22 14:53] LABS: C REACTIVE PROTEIN QUANTITATIV < 0.40 MG/DL (<1.0)
[2022-08-22 14:55] LABS: ALBUMIN 3.6 G/DL (3.2-5.2); ALKALINE PHOSPHATASE 69 U/L (46-116); ALT/SGPT 17 U/L (7.0-40); AST/SGOT 15 U/L (<34); BILIRUBIN,TOTAL 0.3 MG/DL (0.3-1.2); BLOOD UREA NITROGEN 10 MG/DL (9-23); CALCIUM LEVEL 8.9 MG/DL (8.5-10.1); CARBON DIOXIDE LEVEL 28 MMOL/L (20-31); CHLORIDE LEVEL 108 MMOL/L (98-107); COMPLEMENT C3 109.2 MG/DL (84.0-160.0); COMPLEMENT C4 27.6 MG/DL (12-36); CREATININE FOR GFR 0.87 MG/DL (0.55-1.30); GLOMERULAR FILTRATION RATE > 60.0 (>60); GLUCOSE, FASTING 90 MG/DL (60-100); POTASSIUM SERUM 4.5 MMOL/L (3.5-5.1); SODIUM LEVEL 140 MMOL/L (136-145); TOTAL PROTEIN 6.7 G/DL (5.7-8.2); TOTAL PROTEIN,RANDOM URINE < 6.0 MG/DL (0.0-14.0)
== END ==
LOC: M PLALAB 09:34
PROVIDERS: ATTEND Internal Medicine Rheumatology
DX: R76.8 Other specified abnormal immunological findings in serum (principal)

== ENCOUNTER 2022-09-07 10:00 | Outpatient (RCR) | payer OTHER | END 2022-09-21 | LOC: M PT 10:00 | PROVIDERS: ATTEND Nurse Practitioner Family | DX: M77.11 Lateral epicondylitis, right elbow (principal); M54.2 Cervicalgia ==

== ENCOUNTER → 2024-02-14 | Outpatient (REF) | payer OTHER | LOC: M SFHCWAGY 17:42 | PROVIDERS: ATTEND Nurse Practitioner Family | DX: Z12.4 Encounter for screening for malignant neoplasm of cervix (principal) ==

== ENCOUNTER → 2024-02-19 | Outpatient (REF) | payer OTHER | LOC: M LAB REF 12:32 | PROVIDERS: ATTEND Physician Assistant | DX: B34.9 Viral infection, unspecified (principal) ==